=== PATIENT | male | born 1975 | race Caucasian/White ===

== ENCOUNTER 2021-01-01 05:40 | Outpatient (CLI) | payer MEDICAID ==
[~2021-01-01] VITALS: Ht 188 cm; Wt 114.5 kg
[2021-01-04] MEDS ORDERED: PRIM50TA33 PO (13:48)
[2021-01-04] MEDS ORDERED: TRAZ-227 PO (13:48)
[2021-01-04] MEDS ORDERED: PRAZ2CAP2 PO (13:48)
[2021-01-04] MEDS ORDERED: SNN187T PO (13:48)
[2021-01-04] MEDS ORDERED: PROP10TA8 PO (13:48)
[2021-01-04] MEDS ORDERED: METH-732 PO (13:48)
[2021-01-04] MEDS ORDERED: ZOLP10TA PO (13:48)
[2021-01-04] MEDS ORDERED: LAMO150T3 PO (13:48)
[2021-01-04] MEDS ORDERED: SUCR1TAB36 PO (13:48)
[2021-01-04] MEDS ORDERED: PANT40TA52 PO (13:48)
[2021-01-04] MEDS ORDERED: CELE200C PO (13:48)
[2021-01-04] MEDS ORDERED: HALO5AMP IJ (13:48)
[2021-01-04] MEDS ORDERED: ATOR40TA70 PO (13:48)
[2021-01-04] MEDS ORDERED: FENO145T26 PO (13:48)
== END 2021-01-04 13:59 | disposition home or self-care (01) ==
LOC: PREOP 05:40
PROVIDERS: ATTEND Otolaryngology Otolaryngology/Facial Plastic Surgery
DX: Z01.818 Encounter for other preprocedural examination (principal)

== ENCOUNTER 2021-01-08 06:26 | Day surgery (SDC) | payer MEDICAID ==
[~2021-01-08] VITALS: Ht 188 cm; Wt 114.5 kg
[2021-01-08] VITALS (9 sets, daily range): BP systolic 106–137; BP diastolic 63–84
[~2021-01-08 06:26] MED LIST: ATOR40TA70 PO; CELE200C PO; FENO145T26 PO; HALO5AMP IJ; LAMO150T3 PO; METH-732 PO; PANT40TA52 PO; PRAZ2CAP2 PO; PRIM50TA33 PO; PROP10TA8 PO; SNN187T PO; SUCR1TAB36 PO; TRAZ-227 PO; ZOLP10TA PO
--- OUTSIDE RECORDS SUMMARY | 2021-01-08 06:29 | XMS REPORT | Encounter Summary ---
Author Author [facility] Organization [facility] Address Unknown Phone Unavailable Care Team Providers Care Refinery Operator Assistant Name Role Phone Molly Barragan PA-C PCP Reason for Referral * Radiology Services (Routine) Referred By Contact Referred To Contact Status Reason Specialty Diagnoses / Procedures Benito Pruitt MD [address] [place] [address] New Request Radiology Diagnoses Lumbosacral radiculopathy P rocedures FLUORO GUIDANCE FOR INJ RAD Electronically signed by Benito Pruitt MD at Reason for Visit * Reason Onset Date Comments Pre-Visit Planning 12/29/2020 Encounter Details Care Team Description Date Type Department Benito Pruitt MD [address] [place] [address] Pre-Visit Planning 12/29/2020 Telephone [facility]: [facility] [place], [facility] [address], [address] [place] [address] Social History Date Tobacco Use Types Packs/Day Years Used Current Every Day Smoker Cigarettes 0.75 30 Smokeless Tobacco: Never Used Comments: 1.5 ppd average (39 py hx) Comments Alcohol Use Standard Drinks/Week 2-5 drinks on 2 occasions per year Yes 0 (1 standard drink = 0.6 o z pure alcohol) Alcohol Habits Answer Date Recorded How often do you have a drink containing alcohol? Monthly or less 06/04/2020 How many drinks containing alcohol do you have on 3 or 4 06/04/2020 a typical day when you are drinking? How often do you have six or more drinks on one Never 06/04/2020 occasion? 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 documented as of this encounter Functional Status Date of Assessment Functional Status Response 10/09/2020 Does the patient have a hearing impairment: No 10/09/2020 Does the patient have a visual impairment: Yes 10/09/2020 Does the patient have impaired ambulation: No 10/09/2020 Does the patient have an activity of daily living No (ADL) impairment: 10/09/2020 Does the patient have an instrumental activity of No daily living (IADL) impairment: Date of Assessment Cognitive Status Response 10/09/2020 Does the patient have a cognitive impairment: No documented as of this encounter Plan of Treatment Care Team Description Date Type Specialty Benito Pruitt MD [address] [place] [address] [phone] 01/14/2021 Hospital Anesthesia Pain Encounter documented as of this encounter Goals Goal Patient Associated Recent Progress Patient-Stat Aut hor Goal Type Problems ed? Improve quality of life Hospital Yes Rasheed Choi, RN Note: "Stop feeling the way I do and find the right medications" documented as of this encounter Results * FLUORO GUIDANCE FOR INJ RAD (12/30/2020 9:24 AM CDT) Specimen Narrative Performed At This order has been auto finalized and does not conta in a result. [facility] Performing Organization Address City/State/ZIP Code P ayaan Number [facility] documented in this encounter Visit Diagnoses Diagnosis Lumbosacral radiculopathy - Primary Thoracic or lumbosacral neuritis or rad iculitis, unspecified documented in this encounter Additional Health Concerns Assessment Noted Time A fall risk assessment has been completed for the pat ient 12/09/2020 9:25 AM CDT PHQ-2 Depression Total Score: 1 10/22/2020 10:11 AM CDT documented as of this encounter
--- OUTSIDE RECORDS SUMMARY | 2021-01-08 06:29 | XMS REPORT | Encounter Summary ---
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 Mario Alberto Nieto MD [facility] [place] [address] [facility] Pain Proc [address] [facility], [address] [place] [address] Authorized Anesthesia Pain Diagnoses Lumbosacral radiculopathy P rocedures [facility] SPINE INJECT INTERLAM LMBR/SAC Encounter Details Care Team Description Date Type Department Benito Pruitt MD [address] [facility] [place] [facility] [place] [address] Lumbosacral radiculopathy (Primary Dx) 12/30/2020 Procedure visit [facility] [place] [address] [facility], [address] [place] [address] Social History Date Tobacco Use [...] at Date Recorded Male 04/08/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 documented as of this encounter Last Filed Vital Signs Reading Time Taken Comments Vital Sign 110/75 12/30/2020 9:35 AM CDT Blood Pressure 77 12/30/2020 8:45 AM CDT Pulse 36.8 C (98.2 F) 12/30/2020 8:45 AM CDT Temperature 17 12/30/2020 8:45 AM CDT Respiratory Rate 95% 12/30/2020 9:35 AM CDT Oxygen Saturation - - Inhaled Oxygen Concentration 114.3 kg (252 lb) 12/30/2020 8:45 AM CDT Weight 188 cm (6' 2") 12/30/2020 8:45 AM CDT Height 32.35 12/30/2020 8:45 AM CDT Body Mass Index documented in this encounter Functional Status Date of Assessment [...] impairment: No documented as of this encounter Patient Instructions * Patient Instructions* Robi Robertson RN - 12/30/2020 8:30 AM CDT Procedure Completed Today: Lumbar Epidural Steroid Injection Important information following your procedure today: You may drive today 1. Pain relief may not be immediate. It is possible you may even experience an i ncrease in pain during the first 24-48 hours followed by a gradual decrease of y our pain. 2. Though the procedure is generally safe and complications are rare, we do ask that you be aware of any of the following: Any swelling, persistent redness, new bleeding, or drainage from the site of the injection. You should not experience a severe headache. You should not run a fever over 101 F. New onset of sharp, severe back & or neck pain. New onset of upper or lower extremity numbness or weakness. New difficulty controlling bowel or bladder function after the injection. New shortness of breath. If any of these occur, please call to report this occurrence to a nurse at [phone]. If you are calling after 4:00 p.m., on weekends or holidays please call [phone] and ask to have the resident physician air conditioning insulation installer for the physician p aged or go to your local emergency room. 3. You may experience soreness at the injection site. Ice can be applied at 20 m inute intervals. Avoid application of direct heat, hot showers or hot tubs today . 4. Avoid strenuous activity today. You may resume your regular activities and ex ercise tomorrow. 5. Patients with diabetes may see an elevation in blood sugars for 7-10 days aft er the injection. It is important to pay close attention to your diet, check you r blood sugars daily and report extreme elevations to the physician that treats your diabetes. 6. Patients taking a daily blood thinner can resume their regular dose this even ing. 7. It is important that you take all medications ordered by your pain physician. Taking medication as ordered is an important part of your pain care plan. If you cannot continue the medication plan, please notify the physician. Possible side effects to steroids that may occur: Flushing or redness of the face Irritability Fluid retention Change in womens menses The following medications were used: Triamcinolone and Contrast Dye documented in this encounter Progress Notes * Benito Pruitt MD - 12/30/2020 8:30 AM CDT I have examined the patient, and there are no significant changes in their condi tion, from the previous H&P performed on 12/09/20. L5-S1 ILESI [facility] - [facility] Subjective Chief Complaint: multifocal pain Interval HPI: Kelvin Dukes is a 45 y.o. male who has a past medical histor y of Acid reflux, Anxiety, Asthma, COPD (chronic obstructive pulmonary disease) (HCC), COVID-19 (07/2020), Degenerative cervical disc, Degenerative disc disease , cervical, Degenerative disc disease, lumbar, Degenerative disc disease, thorac ic, Depression (2018), Generalized headaches, High cholesterol, Hypertension, Ki dney stones, Nausea, and Thyroid disorder (2008). who now presents for evaluatio n. Patient presents to clinic for follow-up of low back and neck pain, accompanied by his spouse. NECK Patient reports 0% relief after ANANDA performed on 10/27/2020. Yet his pain has ch anged since last office visit, patient states he is no longer having the LUE sophia n like before the injection. The pain is in the mid-low neck region Denies BUE pain Pain is constant Numbness/tingling: yes - posterior upper LUE The pain ranges 6-9/10 The pain is described as stabbing, numbness, dull The pain is exacerbated by cervical ROM/rotation, lifting objects No clear alleviating factors +muscle stiffness/tightness Reports weakness in the LUE LBP Patient reports 0% relief after right L4-S1 TFESI performed on 11/11/2020. Denies even transient relief. The pain is in the middle of the low back, will radiate to the tailbone region t hen in will occasionally radiate in posterolateral distribution to the ankle in the RLE Denies LLE pain Pain is constant Numbness/tingling: yes - BLE, R>L The pain ranges 3-9/10 (avg 6/10) The pain is described as stabbing The pain is exacerbated by sitting > 1 hour, standing > 20-30 minutes The pain is partially alleviated by position changes/stretching, tailbone suppor t +muscle stiffness/tightness Reports weakness in the RLE Patient currently taking Lyrica 150mg QID, Celebrex, Robaxin as prescribed by PC P. Patient reports previous PT sessions with minimal relief and actually feels exer cise exacerbates level of pain. Hx of spine surgery: yes - ACDF C6-C7 Patient denies fevers, chills, infection, bleeding issues, anticoagulants, new m uscle weakness, numbness, tingling, bowel/bladder incontinence, or saddle anesth esia. ROS: Review of Systems Musculoskeletal: Positive for back pain, myalgias and neck pain. Neurological: Positive for weakness. PRIOR MEDICATIONS: Effective Lyrica Robaxin Ineffective Gabapentin Cymbalta Flexeril Tizanidine Unable to tolerate NSAID Never Ami/Nortriptyline Tizanidine PRIOR INTERVENTIONS: C6-7 ACDF Effective ?costochondral injections TESI (2 weeks relief x2) Ineffective Physician-ordered PT Kelvin Dukes denies any recent fevers, chills, infection, antibiotics, dat l or bladder incontinence, saddle anesthesia, bleeding issues, or recent anticoa gulant. Past Medical History: Medical History: Diagnosis Date Acid reflux Anxiety Asthma COPD (chronic obstructive pulmonary disease) ([facility]) COVID-19 07/2020 Degenerative cervical disc C5-C6 Degenerative disc disease, cervical Degenerative disc disease, lumbar Degenerative disc disease, thoracic Depression 2018 Generalized headaches High cholesterol Hypertension Kidney stones Nausea Thyroid disorder 2009 Family History: Family History Problem Relation Age of Onset Diabetes Mother Heart Attack Father at 47 Tremor Paternal Grandmother mild Tremor Maternal Aunt Mental Retardation Brother Dementia Paternal Grandfather Social History: [place] [facility] [phone] (2 hours away) Applying for disability. Social History Socioeconomic History Marital status: Spouse name: Not on file Number of children: Not on file Years of education: Not on file Highest education level: Not on file Occupational History Not on file Tobacco Use Smoking status: Current Every Day Smoker Packs/day: 0.75 Years: 30.00 Pack years: 22.50 Types: Cigarettes Smokeless tobacco: Never Used Tobacco comment: 1.5 ppd average (39 py hx) Vaping Use Vaping Use: Former Substances: Nicotine Substance and Sexual Activity Alcohol use: Yes Alcohol/week: 0.0 standard drinks Comment: 2-5 drinks on 2 occasions per year Drug use: Not Currently Types: Marijuana, Methamphetamines, Cocaine Comment: Last use ~1999 Sexual activity: Not Currently Partners: Female Other Topics Concern Not on file Social History Narrative Not on file Allergies: Allergies Allergen Reactions Morphine HIVES Medications: Current Outpatient Medications: albuterol sulfate (PROAIR HFA) 90 mcg/actuation HFA aerosol inhaler, Inhale 2 puffs by mouth into the lungs every 6 hours as needed for Wheezing or Shortne ss of Breath. Shake well before use., Disp: , Rfl: atorvastatin (LIPITOR) 40 mg tablet, Take 40 mg by mouth daily., Disp: , Rf l: benztropine (COGENTIN) 1 mg tablet, Take 1 mg by mouth at bedtime daily., D isp: , Rfl: budesonide-formoterol (SYMBICORT HFA) 160-4.5 mcg/actuation inhalation, Inh tova two puffs by mouth into the lungs twice daily., Disp: 10.2 g, Rfl: 0 celecoxib (CELEBREX) 200 mg capsule, Take 200 mg by mouth daily., Disp: , R fl: fenofibrate nanocrystallized (TRICOR) 145 mg tablet, , Disp: , Rfl: hydrOXYzine (ATARAX) 50 mg tablet, Take 50 mg by mouth every 6 hours as nee ded., Disp: , Rfl: ipratropium/albuterol (COMBIVENT RESPIMAT) 20-100 mcg/actuation inhaler, In de luna one puff by mouth into the lungs every 6 hours., Disp: 4 g, Rfl: 0 levothyroxine (SYNTHROID) 200 mcg tablet, Take 200 mcg by mouth daily. Take with 25 mcg tablet, Disp: , Rfl: levothyroxine (SYNTHROID) 25 mcg tablet, Take 25 mcg by mouth daily 30 shiloh nickolas before breakfast. Take with 200 mcg tablet, Disp: , Rfl: methocarbamoL (ROBAXIN) 750 mg tablet, Take one tablet by mouth twice daily ., Disp: 60 tablet, Rfl: 0 nortriptyline (PAMELOR) 25 mg capsule, Take one capsule by mouth at bedtime daily for 30 days., Disp: 30 capsule, Rfl: 3 oxyCODONE (ROXICODONE) 10 mg tablet, Take 10 mg by mouth every 8 hours as n eeded for Pain, Disp: , Rfl: pantoprazole DR (PROTONIX) 40 mg tablet, Take 40 mg by mouth daily., Disp: , Rfl: prazosin (MINIPRESS) 1 mg capsule, Take one capsule by mouth at bedtime edwardo ly. Indications: posttraumatic stress syndrome, Disp: 30 capsule, Rfl: 0 pregabalin (LYRICA) 300 mg capsule, Take 300 mg by mouth twice daily., Disp : , Rfl: primidone (MYSOLINE) 50 mg tablet, Take two tablets by mouth three times da clara., Disp: 90 tablet, Rfl: 5 propranoloL (INDERAL) 10 mg tablet, Take one tablet by mouth twice daily. I ndications: essential tremor, Disp: 60 tablet, Rfl: 0 SENNA LAX 8.6 mg tablet, , Disp: , Rfl: sucralfate (CARAFATE) 1 gram tablet, Take 1 tablet by mouth three times edwardo ly., Disp: , Rfl: traZODone (DESYREL) 100 mg tablet, Take one tablet by mouth at bedtime as n eeded for sleep, Disp: 30 tablet, Rfl: 0 Current Facility-Administered Medications: iopamidol IT 200 (ISOVUE-M 200) injection 2.5 mL, 2.5 mL, Epidural, ONCE, L Benito sanches MD triamcinolone acetonide (KENALOG-40) injection 80 mg, 80 mg, Epidural, ONCE , Benito Pruitt MD Physical examination: BP 112/84 | Pulse 77 | Temp 36.8 C (98.2 F) | Resp 17 | Ht 188 cm (74") | Wt 114.3 kg (252 lb) | SpO2 99% | BMI 32.35 kg/m Pain Score: Eight Male Opioid Risk Score: 5 (10/09/2020 1:40 PM) Opioid Risk Category: Moderate Risk (10/09/2020 1:40 PM) General: The patient is a well-developed, well nourished 45 y.o. male in no acut e distress. HEENT: Head is normocephalic and atraumatic. Pupils are equal and reactive to li ght bilaterally. Cardiac: Based on palpation, pulse appears to be regular rate and rhythm. Pulmonary: The patient has unlabored respirations and bilateral symmetric chest excursion. Abdomen: Soft, nontender, and nondistended. There is no rebound or guarding. Extremities: No clubbing, cyanosis, or edema. Neurologic: The patient is alert and oriented times 3. Cranial nerves II through XII are intact without any focal deficits. Musculoskeletal: Gait is antalgic. C-Spine There is moderate low cervical paraspinal tenderness. Paraspinal muscle tone is increased. ROM with flexion, extension, rotation, and lateral bending is intact but stiff. Strength is equal and adequate bilaterally in the flexors and extensors of the b ilateral upper extremities. Ramirez's is negative bilaterally. L-Spine There is moderate low lumbar paraspinal tenderness. Paraspinal muscle tone is in creased. Facet loading is positive. There is no tenderness or radiating pain with palpation over the SI joints, piri formis, or greater trochanteric bursae bilaterally. ROM with flexion, extension, rotation, and lateral bending is intact. Strength is equal and adequate bilaterally in the flexors and extensors of the b ilateral lower extremities. SLR is positive in the RLE. CT C-spine Myelogram: 2020 1. No high-grade central spinal stenosis or foraminal narrowing. C6-7 prosthetic disc. 2. C5-6 degenerative disc disease resulting in mild to moderate central spinal stenosis. MRI C/T/L-Spine Results: Results for orders placed during the hospital encounter of 08/29/20 MRI C-SPINE WO/W CONTRAST Narrative EXAM: MRI C-SPINE, T-SPINE, AND L-SPINE HISTORY: 45-year-old male, right lower extremity numbness/urinary incontinence, evaluate for epidural abscess or compressive syndrome. Technique: Multiple sagittal and axial MR sequences were obtained of the cervica l, thoracic, and lumbar spine with and without MultiHance contrast. Comparison: CT C-spine January 11, 2020 and MRI T and L-spine January 12, 2020. FINDINGS: Motion degrades multiple sequences. C-spine: Susceptibility artifact at C6-C7 from interbody spacer limits evaluation at this level. There is slight reversal of the normal cervical lordosis. The vertebral body heights are maintained. There is normal marrow signal. The cervical cord i s normal in size and signal. There is multilevel cervical disc degeneration, gre atest of moderate degree at C5-C6. At C2-C3, no significant central canal or foraminal narrowing. At C3-C4, small posterior disc osteophyte complex with minimal central disc prot rusion results in mild effacement of the anterior thecal sac/mild central canal stenosis. Uncovertebral joint and facet joint hypertrophy result in mild bilater al neural foraminal stenosis. At C4-C5, a mild posterior disc bulge results in mild central spinal stenosis. N o significant neural foraminal stenosis. At C5-C6, posterior disc osteophyte complex result in [id number] central s joseline stenosis. Susceptibility artifact limits evaluation for neural foraminal n arrowing, though no moderate or high-grade foraminal stenosis is seen. Evaluation at C6-C7 is limited due to susceptibility artifact. At C7-T1, no significant central spinal or neural foraminal stenosis. No abnormal enhancing lesion is identified. There is some mild epidural enhancem ent at the lower cervical spine which may represent some mild postoperative fibr osis, though no epidural hematoma or epidural abscess is seen. The paraspinous s oft tissues are unremarkable. T-spine: There is normal thoracic alignment. The vertebral body heights are maintained. T here is normal marrow signal. The thoracic cord is normal in size and signal. T here is moderate multilevel thoracic disc degeneration, greatest within the midt horacic spine. Small right paracentral disc protrusion at T11-T12 is redemonstra chandu along with a few minimal posterior disc bulges, without significant central spinal stenosis. There is no significant neural foraminal stenosis. No abnormal enhancing lesion is identified. No epidural hematoma or abscess. The paraspinous soft tissues are unremarkable. L-spine: There is normal lumbar alignment. The vertebral body heights are maintained. The re is normal marrow signal. The conus is normal in appearance and position at t he L1 level. There is multilevel lumbar disc degeneration, greatest of moderate degree at L1-L2, similar prior. Mild multilevel facet joint fluid. At T12-L1, no significant central spinal or neural foraminal stenosis. At L1-L2, mild symmetric disc bulge as well as moderate anterior and small poste rior osteophytes, without significant central spinal or neural foraminal stenosi s. At L2-L3, mild symmetric disc bulge and facet arthrosis without significant cent ral spinal or neural foraminal stenosis. At L3-L4, symmetric disc bulge, ligamentum flavum thickening, and facet arthrosi s result in very mild left neural foraminal stenosis. At L4-L5, symmetric disc bulge, ligamentum flavum thickening, small posterior ri ght scalp, and facet arthrosis result in mild left neural foraminal narrowing. N o significant central canal stenosis. At L5-S1, symmetric disc bulge and facet arthrosis present without significant c entral canal or foraminal stenosis. No abnormal enhancing lesion is identified. The paraspinous soft tissues are unr emarkable. No epidural abscess or hematoma. Impression C-spine: 1. Motion limited examination. Prior C6-C7 interbody spacer with some mild lower cervical epidural enhancement present anteriorly and posteriorly and favored for mild postoperative fibrosis, with no epidural hematoma or abscess seen. 2. Multilevel degenerative central spinal stenosis, greatest of mild to moderate degree at C5-C6. There are also a few sites of mild neural foraminal narrowing. T-spine: 1. Thoracic spondylosis without significant central spinal or neural foraminal s tenosis. 2. No epidural hematoma or abscess. L-spine: 1. Lumbar spondylosis with mild multilevel degenerative neural foraminal stenosi s as above. No significant central canal narrowing. 2. No epidural abscess or hematoma. By my electronic signature, I attest that I have personally reviewed the images for this examination and formulated the interpretations and opinions expressed i n this report Finalized by Rasheed De La Cruz M.D. on 08/29/2020 7:27 AM. Dictated by Shaq santana M.D. on 08/29/2020 6:37 AM. Last Cr and LFT's: Creatinine Date Value Ref Range Status 09/28/2020 1.08 0.4 - 1.24 MG/DL Final AST (SGOT) Date Value Ref Range Status 09/28/2020 20 7 - 40 U/L Final ALT (SGPT) Date Value Ref Range Status 09/28/2020 50 7 - 56 U/L Final Alk Phosphatase Date Value Ref Range Status 09/28/2020 81 25 - 110 U/L Final Total Bilirubin Date Value Ref Range Status 09/28/2020 0.4 0.3 - 1.2 MG/DL Final Assessment: Kelvin Dukes is a 45 y.o. male who has a past medical history of Acid refl ux, Anxiety, Asthma, COPD (chronic obstructive pulmonary disease) (HCC), COVID-1 9 (07/2020), Degenerative cervical disc, Degenerative disc disease, cervical, De generative disc disease, lumbar, Degenerative disc disease, thoracic, Depression (2019), Generalized headaches, High cholesterol, Hypertension, Kidney stones, N ausea, and Thyroid disorder (2009). who presents for evaluation of pain. The pain complaints are most likely due to: 1. Lumbosacral radiculopathy K[facility] AMB SPINE INJECT INTERLAM LMBR/SAC [facility] AMB SPINE INJECT SNRB/TFESI LUMBAR/SACRAL triamcinolone acetonide (KENALOG-40) injection 80 mg Patient has had an adequate trial of > 3 months of rest, exercise, multimodal treatment, and the passage of time without improvement of symptoms. The pain has significant impact on the daily quality of life. Plan: 1. Discussed plan of care options with patient. Will schedule for L5-S1 ILESI at next available appointment. 2. Will then schedule for bilateral C6-T1 MBBs with subsequent goal of RFA after the low back procedure. 3. Will trial Nortriptyline 25mg qHS for neuropathic pain. Discussed risks and b enefits of medication therapy and possible SEs, patient verbalized understanding and all questions answered. 4. Encouraged daily in-home PT regimen as tolerated. 5. Continue medications as prescribed by PCP. 6. If he fails to improve, can consider other options. We did discuss that SCS m ay not be a possibility on Medicaid, but would be viable with Medicare based on his symptoms. 7. Follow up as needed. Risks/benefits of all pharmacologic and interventional treatments discussed and questions answered. * Barbara Licona RN - 12/30/2020 8:30 AM CDT Pain Procedure Plan Of Care Risk of injury related to procedure Patient identification, allergies verified, fall precautions implemented Risk of injury and impaired skin integrity Positioning devices applied as appropriate for procedure, patient transported [facility] staff assistance Management of Pain Pain assessment completed on arrival, PAR scoring following procedure and at dis charge, sedation administered as ordered, patient positioned for comfort Risk of anxiety related to procedure and disease process Patient education on procedure and expectations, provide coping support to patie nt, provide relaxation techniques Outcomes: The patient is free of injury during and following their procedure. Skin is intact and free of bruising. The patients pain is managed during their stay. Alleviation of patient anxiety exhibited. documented in this encounter Procedure Notes * Benito Pruitt MD - 12/30/2020 8:30 AM CDT Associated Order(s): KALA LMBR/SAC Attending Surgeon: Benito Pruitt MD Anesthesia: Local Pre-Procedure Diagnosis: 1. Lumbosacral radiculopathy Post-Procedure Diagnosis: 1. Lumbosacral radiculopathy KALA LMBR/SAC Procedure: epidural - interlaminar Laterality: n/a on 12/30/2020 8:30 AM Location: lumbar KALA with imaging - L5-S1 Consent: Consent obtained: written Consent given by: patient Risks discussed: allergic reaction, bleeding, bruising, infection, nerve damage, no change or worsening in pain, reaction to medication, seizure, swelling and w eakness Alternatives discussed: alternative treatment, delayed treatment and no treatmen t Discussed with patient the purpose of the treatment/procedure, other ways of susan ating my condition, including no treatment/ procedure and the risks and benefits of the alternatives. Patient has decided to proceed with treatment/procedure. [place] Protocol: Relevant documents: relevant documents present and verified Site marked: the operative site was marked Patient identity confirmed: Patient identify confirmed verbally with patient. Time out: Immediately prior to procedure a "time out" was called to verify the c orrect patient, procedure, equipment, learning support assistant and site/side marked as requ ired Procedures Details: Indications: pain Prep: chlorhexidine Patient position: prone Estimated Blood Loss: minimal Specimens: none Amount Injected: L5-S1: 4mL Number of Joints: 1 Guidance: fluoroscopy Needle and Epidural Catheter: tuohy Needle size: 18 G Injection procedure: Incremental injection and Negative aspiration for blood Patient tolerance: Patient tolerated the procedure well with no immediate compli cations. Pressure was applied, and hemostasis was accomplished. Outcome: Pain relieved Comments: LUMBAR INTERLAMINAR EPIDURAL STEROID INJECTION PROCEDURE: 1) L5-S1 interlaminar epidural steroid injection 2) Fluoroscopic needle guidance REASON FOR PROCEDURE: Lumbar radiculopathy, DDD (lumbar) PHYSICIAN: Benito Pruitt MD MEDICATIONS INJECTED: 2 mL of triamciniolone (80 mg) and 2 mL of sterile, preser vative-free saline LOCAL ANESTHETIC INJECTED: 1 mL of 1% lidocaine SEDATION MEDICATIONS: None SPECIMENS REMOVED: None ESTIMATED BLOOD LOSS: None COMPLICATIONS: None TECHNIQUE: Time-out was taken to identify the correct patient, procedure and robbie e prior to starting the procedure. With the patient lying in the prone position, the area was prepped and draped in the usual sterile fashion using DuraPrep and a fenestrated drape. The level above was determined using fluoroscopy. A local anesthetic was given using a 27-gauge 1.25-inch needle by raising a skin wheal a nd going down to the hub. A 3.5-inch 18-gauge Tuohy needle was introduced under intermittent fluoroscopic guidance. The needle was advanced through the ligament um flavum using the loss of resistance technique. Once the tip of the needle was thought to be in the desired position, the contrast was injected to confirm only epidural spread, and no vascular runoff. The injectate was then injected slowly with intermittent negative aspiration. The procedure was completed without com plications and was tolerated well. The patient was monitored after the procedure . The patient (or responsible constitution party) was given post-procedure and discharge inst ructions to follow at home. The patient was discharged in stable condition. Benito Pruitt MD, VIVIAN Estimated blood loss: none or minimal Specimens: none Patient tolerated the procedure well with no immediate complications. Pressure w as applied, and hemostasis was accomplished. documented in this encounter Plan of Treatment Care Team Description Date Type Specialty Benito Pruitt MD [address] [place] [address] [phone] 01/14/2021 Hospital Anesthesia Pain Encounter documented as of this encounter Goals Goal Patient Associated Recent Progress Patient-Stat Aut hor Goal Type Problems ed? Improve quality of life Hospital Yes Rasheed Choi, RN Note: "Stop feeling the way I do and find the right medications" documented as of this encounter Procedures Comments Procedure Name Priority Date/Time Associated Diag nosis LA NJX DX/THER SBST Routine 12/30/2020 Lumbosacra l radiculopathy INTRLMNR LMBR/SAC W/IMG 8:30 AM CDT GDN documented in this encounter Results * [facility] LMBR/SAC (12/30/2020 8:30 AM CDT) Narrative Performed At Benito Pruitt MD 12/30/2020 10:06 AM OTHER OUTS HECTOR LAB [facility] LMBR/SAC Procedure: epidural - interlaminar Laterality: n/a on 12/30/2020 8:30 AM Location: lumbar [facility] with imaging - L5- S1 Consent: Consent obtained: written Consent given by: patient Risks discussed: allergic reaction, ble eding, bruising, infection, nerve damage, no change or worsening in pain, reaction to medication, seizure, swelling and weakness Alternatives discussed: alternative susan atment, delayed treatment and no treatment Discussed with patient the purpose of t he treatment/procedure, other ways of treating my condition, including no treatment/ procedure and the risks and benefits of the alternatives. Patie nt has decided to proceed with treatment/procedure. [place] Protocol: Relevant documents: relevant documents present and verified Site marked: the operative site was [place] cab[place] Patient identity confirmed: Patient hector ntify confirmed verbally with patient. Time out: Immediately prior to procedur e a "time out" was called to verify the correct patient, procedure, equipme nt, learning support assistant and site/side marked as required Procedures Details: Indications: pain Prep: chlorhexidine Patient position: prone Estimated Blood Loss: minimal Specimens: none Amount Injected: L5-S1: 4mL Number of Joints: 1 Guidance: fluoroscopy Needle and Epidural Catheter: tuohy Needle size: 18 G Injection procedure: Incremental inject ion and Negative aspiration for blood Patient tolerance: Patient tolerated th e procedure well with no immediate complications. Pressure was applied, an d hemostasis was accomplished. Outcome: Pain relieved Comments: LUMBAR INTERLAMINAR EPIDURAL STEROID IN JECTION PROCEDURE: 1) L5-S1 interlaminar epidural steroid injection 2) Fluoroscopic needle guidance REASON FOR PROCEDURE: Lumbar radiculopa thy, DDD (lumbar) PHYSICIAN: Benito Pruitt MD MEDICATIONS INJECTED: 2 mL of triamcini olone (80 mg) and 2 mL of sterile, preservative-free saline LOCAL ANESTHETIC INJECTED: 1 mL of 1% l idocaine SEDATION MEDICATIONS: None SPECIMENS REMOVED: None ESTIMATED BLOOD LOSS: None COMPLICATIONS: None TECHNIQUE: Time-out was taken to identi fy the correct patient, procedure and side prior to starting the procedur e. With the patient lying in the prone position, the area was prepped an d draped in the usual sterile fashion using DuraPrep and a fenestrate d drape. The level above was determined using fluoroscopy. A local a nesthetic was given using a 27-gauge 1.25-inch needle by raising a skin wheal and going down to the hub. A 3.5-inch 18-gauge Tuohy needle w as introduced under intermittent fluoroscopic guidance. The needle was a dvanced through the ligamentum flavum using the loss of resistance gilberto hnique. Once the tip of the needle was thought to be in the desired positi on, the contrast was injected to confirm only epidural spread, and no va scular runoff. The injectate was then injected slowly with intermittent negative aspiration. The procedure was completed without complications and was tolerated well. The patient was monitored after the procedure. The patient (or responsible constitution party) was given post-procedure and discharge inst ructions to follow at home. The patient was discharged in stable condit ion. Benito Pruitt MD, VIVIAN Performing Organization Address City/State/ZIP Code P ayaan Number OTHER OUTSIDE LAB documented in this encounter Visit Diagnoses Diagnosis Lumbosacral radiculopathy - Primary Thoracic or lumbosacral neuritis or rad iculitis, unspecified documented in this encounter Administered Medications Action Date Dose Rate Site Medication Order MAR Action 12/30/2020 9:17 AM CDT 2.5 mL iopamidol IT 200 (ISOVUE-M 200) Given injection 2.5 mL 2.5 mL, Epidural, ONCE, 1 dose, On Mon12/30/20 at 0915, NOTE: This is a HIGH ALERT Medication. 12/30/2020 9:17 AM CDT 80 mg triamcinolone acetonide (KENALOG-40) Given injection 80 mg 80 mg, Epidural, ONCE, 1 dose, On Mon12/30/20 at 1000 documented in this encounter Discontinued Medications Start Date End Date Medication Sig Discontinue Reason 10/16/2020 12/30/2020 methylPREDNIsolone Patient's (MEDROL DOSEPAK) 4 mg Choice tablet documented as of this encounter Orders First Ordered Date Procedures Count Last Ordered Date [facility] SPINE INJECT INTERLAM LMBR/SAC 1 12/30/2020 KU AMB SPINE INJECT SNRB/TFESI 1 021 LUMBAR/SACRAL documented in this encounter Additional Health Concerns Assessment Noted Time A fall risk assessment has been completed for the pat ient 12/09/2020 9:25 AM CDT PHQ-2 Depression Total Score: 1 10/22/2020 10:11 AM CDT documented as of this encounter
--- OUTSIDE RECORDS SUMMARY | 2021-01-08 06:29 | XMS REPORT | Clinical Summary ---
Author Author [facility] Organization [facility] Address Unknown Phone Unavailable Care Team Providers Care Electrical Project Engineer Name Role Phone Molly Barragan PA-C PCP Allergies Comments Active Allergy Reactions Severity Noted Date Pt has taken oxycodone and norco without problemshives Morphine 12/06/2019 Medications End Date Status Medication Sig Dispensed Refills Start Date Active hyoscyamine Take 1 tablet 20 tablet 1 (ANASPAZ,LEVSIN) 0.125 mg (0.125 mg 9 tablet total) by mouth every 4 (four) hours as needed for cramping (bladder spasms or frequency). Active atorvastatin (LIPITOR) 40 Take 40 mg by 0 11/13 MG tablet mouth daily. 0 Active levothyroxine (SYNTHROID, Take 200 mcg 0 11/13 LEVOTHROID) 200 MCG by mouth 0 tablet daily. Pt is taking 225mcg Active levothyroxine (SYNTHROID, Take 25 mcg 0 11/13 LEVOTHROID) 75 MCG tablet by mouth 0 daily. Active sennosides/docusate 1 tab, PO, 0 sodium (SENOKOT-S ORAL) BID, 234.79 0 Active QUEtiapine (SEROQUEL XR) Take 100 mg 0 12/02 50 mg ER 24 hr tablet by mouth 0 daily. Active polyethylene glycol 3350 Take 17 g by 0 11/22 (MIRALAX ORAL) mouth as 0 needed. Active pantoprazole (PROTONIX) Take 40 mg by 0 40 MG tablet mouth daily. 0 Active oxyCODONE (ROXICODONE) 5 Take 5 mg by 0 12/01 MG immediate release mouth every 8 0 tablet (eight) hours as needed. Active hydrOXYzine (ATARAX) 50 Take 50 mg by 0 MG tablet mouth every 6 0 (six) hours as needed. Active DULoxetine (CYMBALTA) 60 Take 60 mg by 0 12/02 mg capsule mouth daily. 0 Active SYMBICORT 160-4.5 Inhale 2 0 mcg/actuation inhaler puffs 2 (two) 0 times a day. Active albuterol (VENTOLIN HFA) 1 puff as 0 90 mcg/actuation HFA needed inhaler Active melatonin 3 mg cap Take 40 mg by 0 mouth 0 nightly. Active pregabalin (LYRICA) 150 Take 150 mg 0 MG capsule by mouth 2 (two) times a day. Active tiZANidine (ZANAFLEX) 2 Take 2 mg by 0 MG tablet mouth every 6 (six) hours as needed. Active FLUoxetine (PROZAC) 40 mg Take 60 mg by 0 02/14 capsule mouth daily. 0 Active propranoloL (INDERAL) 40 0 MG tablet 0 Active PRIMIDONE ORAL Take 100 mg 0 by mouth nightly. Active sucralfate (CARAFATE) 1 Take 1 tablet 0 gram tablet (1 g total) 1 by mouth 2 (two) times a day. Active senna (SENOKOT) 8.6 mg Take 1 tablet 7 tablet 0 0 tablet by mouth 1 daily. Active aspirin (ADULT LOW DOSE Take 1 tablet 0 ASPIRIN) 81 MG EC tablet (81 mg total) 1 by mouth daily. Active Problems Problem Noted Date Drug-induced constipation 08/12/2020 Last Assessment & Plan: Formatting of this note might be differ ent from the original. On multiple medications at home with co nstipation side effect (e.g., opioid, anticholinergics, etc.). -Add MiraLAX, senna, and bisacodyl supp ository. Pneumonia due to COVID-19 virus 08/11/2020 Last Assessment & Plan: Formatting of this note might be differ ent from the original. Initial diagnosis 07/31/2020 with sympto ms starting 07/29/2020. Initially, patient endorsed symptoms of head cold, chest cold, migraine. He then had progression to loss of tast e and myalgias. He then developed cough and chest pain around 07/31/2020. Complicated by COPD, asthma, continued tobacco use. Patient presented to [facility] 2020 and was found to have a positive D-dimer, so he was transferred to [facility]. Follow-up CTA of the chest was negative for PE / pneumothorax / pleural effusion; positive for COVID-19 pneumonia; also p ositive for small subpleural blebs in bilateral lung apices. Follow-up bi lateral extremity venous duplex negative for DVT. Per pulmonology consult, wean off subme ntal oxygen; 10-day course of Decadron; anticipate symptoms to persis t for some weeks, and re-evaluate in ER if worsening symptoms; recommend smo luis cessation; repeat chest CT in 2 months with pulmonology clinic follow-u p in 2 months; further evaluate obstructive sleep apnea. -Continue Decadron 6 mg daily. -Continue bronchodilators. -Continue ICS/LABA. -Continue Lovenox 0.5 mg/kg (60 mg) twi ce daily while monitoring for acute bleeding. -Wean off supplemental oxygen. -Today's liver enzyme levels have retur saurav to normal range, resume home atorvastatin. -Pending outpatient pulmonology follow- up. Other headache syndrome 08/11/2020 Overview: Formatting of this note might be differ ent from the original. L ast Assessment & Plan: Formatting of this note might be differ ent from the original. Subacute. Patient reports headache symptoms since diagnosis with COVID-19. He describes the headache as migrating and intermittent. While on Lovenox for COVID-19 VTE proph ylaxis, follow-up head CT negative for acute intracranial findings. -Continue home analgesics. -Continue the added Decadron. -Continue warm compress as needed. Mood disorder 08/11/2020 Last Assessment & Plan: Formatting of this note might be differ ent from the original. Chronic. Currently, patient states that "his moo d is better than it has been in a while". He denies suicidal ideation. Patient is followed by [facility] in [place]. Patient reports recent medication bowser es including discontinuation of Depakote and Lamictal. He is currently controlled on a regimen of Seroquel XR 100 mg nightly, Cymbalta 60 mg daily , Prozac 40 mg daily. He also takes hydroxyzine twice daily. -Continue home mood medications. -Due to his mood medications' QT-prolon gation risk, will avoid/minimize adding more medications with QT-prolong ation risk. Tremor 08/11/2020 Last Assessment & Plan: Formatting of this note might be differ ent from the original. Chronic. Managed by [facility] neurology. Patient managed on primidone 100 mg edwardo ly and propranolol 40 mg twice daily. -Continue home primidone and propranolo l with BP/HR hold parameters. Chronic low back pain 08/11/2020 Last Assessment & Plan: Formatting of this note might be differ ent from the original. Chronic, currently worsened with recent illness and coughing. Patient has recently been discontinued from gabapentin and started on Lyrica 150 mg twice daily. In addition , he does take oxycodone 5 mg as needed (usually only a few doses weekly ), and tizanidine 8 mg as needed. -Continue home Lyrica, oxycodone, and t izanidine. -Add lidocaine patch. COPD (chronic obstructive pulmonary disease) 021 Last Assessment & Plan: Formatting of this note might be differ ent from the original. With concurrent history of asthma and c ontinued tobacco use. Patient adherent to Symbicort and as ne eded albuterol at home. -Substitute inpatient Breo Ellipta for home Symbicort. -Add albuterol 4 times daily and ipratr opium 4 times daily. -Dexamethasone 6 mg daily. -Tobacco cessation encouraged. History of benign bladder tumor 08/11/2020 Last Assessment & Plan: Formatting of this note might be differ ent from the original. S/p resection several years ago. Patient does continue to complain of dy suria, but has had work-up by his urologist and has a follow-up appointme nt coming up. -Continue home hyoscyamine as needed fo r bladder spasms. Hypothyroidism 10/21/2015 Overview: Formatting of this note might be differ ent from the original. Dx 2008. Last Assessment & Plan: Formatting of this note might be differ ent from the original. Chronic. Per patient report, has been stable on levothyroxine 225 mcg daily. -Admission TSH 13 elevated, but free T4 1.0 WNL. -Continue home levothyroxine 225 mcg da clara. Dyslipidemia Irritability and anger Depression GERD (gastroesophageal reflux disease) Last Assessment & Plan: Formatting of this note might be differ ent from the original. Chronic. Per patient report, has been stable on sucralfate 1 g twice daily and pantoprazole 40 mg daily. -Continue home sucralfate and pantopraz ole and monitor closely in the setting of steroid/NSAID use. Family History Medical History Relation Name Comments Heart attack Father Diabetes Mother Heart attack Mother Thyroid disease Paternal Aunt Thyroid disease Paternal Grandmother Relation Name Status Comments Father Mother Alive Paternal Aunt Paternal Grandmother Social History Date Tobacco Use Types Packs/Day Years Used Current Every Day Smoker Cigarettes 1 22 Smokeless Tobacco: Never Used Tobacco Cessation: Ready to Quit: Yes; C ounseling Given: Yes Comments Alcohol Use Standard Drinks/Week 3-4 per month Yes 0 (1 standard drink = 0.6 o z pure alcohol) Sex Assigned at Date Recorded Not on file Last Filed Vital Signs Reading Time Taken Comments Vital Sign 115/87 08/13/2020 1:07 PM CDT Blood Pressure 78 08/13/2020 1:07 PM CDT Pulse 36.7 C (98 F) 08/13/2020 1:07 PM CDT Temperature 18 08/13/2020 1:07 PM CDT Respiratory Rate 92% 08/13/2020 1:07 PM CDT Oxygen Saturation - - Inhaled Oxygen Concentration 112.5 kg (248 lb) 08/13/2020 6:13 AM CDT Weight 188 cm (6' 2") 08/11/2020 1:13 PM CDT Height 31.84 08/11/2020 1:13 PM CDT Body Mass Index Plan of Treatment Health Maintenance Due Date Last Done Comments Spirometry # 1977 Td/Tdap# 1977 Tobacco Cessation 1977 Counseling # COVID-19 Vaccine (1) 1989 Influenza Vaccine (#1) 2021 Pneumococcal Vaccine: 2042 12/16/2019 Pediatrics (0 to 5 Years) and At-Risk Patients (6 to 64 Years) (2 of 2 - PPSV23) Results Not on filefrom Last 3 Months Insurance Type Payer Benefit Subscriber ID Effective Phone Address Plan / Dates Group MEDICAID MANAGED CARE [place] [id number] 0- ([place] STATE Present HEALTH Advance Directives For more information, please contact: [phone] Patient Sticker Operator Explanation Type Date Recorded Advance Directives and Living Will Power of Cable Driller Health Care Directive Date Inactivated Comments Code Status Date Activated 08/13/2020 3:52 PM Full Code 08/11/2020 4:40 AM
--- OUTSIDE RECORDS SUMMARY | 2021-01-08 06:29 | XMS REPORT | Encounter Summary ---
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 Improve quality of life Hospital Yes Rasheed Choi, RACHEAL Note: "Stop feeling the way I do and find the right medications" documented as of this encounter Visit Diagnoses Not on filedocumented in this encounter Additional Health Concerns Assessment Noted Time A fall risk assessment has been completed for the pat ient 12/09/2020 9:25 AM CDT PHQ-2 Depression Total Score: 1 10/22/2020 10:11 AM CDT documented as of this encounter
--- OUTSIDE RECORDS SUMMARY | 2021-01-08 06:29 | XMS REPORT | Clinical Summary ---
Author Author [facility] Organization [facility] Address Unknown Phone Unavailable Care Team Providers Care Wood Block Artist Name Role Phone Molly Barragan PA-C PCP Source Comments Some departments are not documenting in the electronic medical record. If you d o not see the information that you expected, contact Release of Information in [facility] Management department at [phone] for further assistan ce in locating additional records.[facility] Allergies Comments Active Allergy Reactions Severity Noted Date Morphine HIVES Medium 01/11/2020 Medications End Date Status Medication Sig Dispensed Refills Start Date Active hydrOXYzine (ATARAX) 50 Take 50 mg by 0 mg tablet mouth every 6 0 hours as needed. Active levothyroxine (SYNTHROID) Take 200 mcg 0 11/12 200 mcg tablet by mouth 0 daily. Take with 25 mcg tablet Active levothyroxine (SYNTHROID) Take 25 mcg 0 25 mcg tablet by mouth daily 30 minutes before breakfast. Take with 200 mcg tablet Active sucralfate (CARAFATE) 1 Take 1 tablet 0 gram tablet by mouth 0 three times daily. Active oxyCODONE (ROXICODONE) 10 Take 10 mg by 0 mg tablet mouth every 8 hours as needed for Pain Active celecoxib (CELEBREX) 200 Take 200 mg 0 mg capsule by mouth daily. Active budesonide-formoterol Inhale two 10.2 g 0 /0 (SYMBICORT HFA) 160-4.5 puffs by 1 mcg/actuation inhalation mouth into the lungs twice daily. Active traZODone (DESYREL) 100 Take one 30 tablet 0 mg tablet tablet by 1 mouth at bedtime as needed for sleep Active albuterol sulfate (PROAIR Inhale 2 0 HFA) 90 mcg/actuation HFA puffs by aerosol inhaler mouth into the lungs every 6 hours as needed for Wheezing or Shortness of Breath. Shake well before use. Active pregabalin (LYRICA) 300 Take 300 mg 0 mg capsule by mouth twice daily. Active atorvastatin (LIPITOR) 40 Take 40 mg by 0 mg tablet mouth daily. Active pantoprazole DR Take 40 mg by 0 (PROTONIX) 40 mg tablet mouth daily. Active benztropine (COGENTIN) 1 Take 1 mg by 0 mg tablet mouth at bedtime daily. Active prazosin (MINIPRESS) 1 mg Take one 30 capsule 0 capsuleIndications: post capsule by 1 traumatic stress disorder mouth at bedtime daily. Indications: posttraumatic stress syndrome Active propranoloL (INDERAL) 10 Take one 60 tablet 0 0 mg tabletIndications: tablet by 1 essential tremor mouth twice daily. Indications: essential tremor Active ipratropium/albuterol Inhale one 4 g 0 09/12 (COMBIVENT RESPIMAT) puff by mouth 1 20-100 mcg/actuation into the inhaler lungs every 6 hours. Active methocarbamoL (ROBAXIN) Take one 60 tablet 0 750 mg tablet tablet by 1 mouth twice daily. Active fenofibrate 0 nanocrystallized (TRICOR) 1 145 mg tablet Active SENNA LAX 8.6 mg tablet 0 1 Active primidone (MYSOLINE) 50 Take two 90 tablet 5 mg tablet tablets by 1 mouth three times daily. 01/08/2021 Active nortriptyline (PAMELOR) Take one 30 capsule 3 25 mg capsule capsule by 1 mouth at bedtime daily for 30 days. 12/30/2020 Discontinued (Patient's Tavera ce) methylPREDNIsolone 0 (MEDROL DOSEPAK) 4 mg 1 tablet Status Hospital, Clinic, or Ordered Dose Route Frequency Start End Date Other Facility Date Administered Medication Ended iopamidol IT 200 2.5 mL EP ONCE 12/31/19 (ISOVUE-M 200) injection 21 1 2.5 mL Active Problems Problem Noted Date Meralgia paresthetica 10/25/2020 Overview: Formatting of this note might be differ ent from the original. RLE Size is intermittent but can be quite l arge, slightly larger than expected of lateral femoral cutaneous nerve but this is likely contributing with history of jeans/belt and frequent numb ness in this area. Typically no true weakness but sometimes has pain fr om hip down that makes his leg feel weaker. L ast Assessment & Plan: Formatting of this note might be differ ent from the original. Trial of looser fitting clothing EMG/NCS Cervical radiculopathy at C6 10/25/2020 Overview: Formatting of this note might be differ ent from the original. S/P ACDF November 2019 CT Myelogram continues to have moderate stenosis Followed by neurosurgery and pain anest hesia - plan for injections and possible spinal stimulator Symptoms inconsistent - likely radicula r but unclear L ast Assessment & Plan: Formatting of this note might be differ ent from the original. Routine EMG/NCS to eval Borderline personality disorder in adult 07/18/2020 Severe episode of recurrent major depressive disorder , with psychotic 07/14/2020 features PTSD (post-traumatic stress disorder) 07/14/2020 Numbness and tingling of left lower extremity 2020 Overview: Formatting of this note might be differ ent from the original. Mild vibration sense loss in LLE distal to ankles May be related to known hx of DDD/radic ulopathy Concurrent mild cognitive deficits L ast Assessment & Plan: Formatting of this note might be differ ent from the original. EMG/NCS Cognitive complaints 06/06/2020 Overview: Formatting of this note might be differ ent from the original. Forgets some acquaintances Forgets some tasks, placing objects Not substantially impacting QoL Drives, does not get lost Fully independent ADLs, iADLs Did not graduate high school but did ge t [employer]ED [employer] on 06/06/20: (-1 for delayed recall, -2 for missing story question) Likely multifactorial with thyroid diso rder, poor sleep, polypharmacy with multiple sedating agents for back pain L ast Assessment & Plan: Formatting of this note might be differ ent from the original. Continue to work on reducing polypharma cy Lower dose of lyrica more frequently co uld be beneficial - discuss with subscribing physician Essential tremor 06/04/2020 Overview: Formatting of this note might be differ ent from the original. 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 Start primidone 100mg TID Ramp 150mg TID, 200mg TID, and 250mg TI D based on efficacy (give 1-2 weeks in between doses) Instructed patient to continue using My Chart to communicate symptom management Future: Namenda may be a good off-label option especially given patient's cognitive complaints Resolved Problems Problem Noted Date Resolved Date Dysarthria 09/24/2020 09/28/2020 Suicide ideation 07/14/2020 07/18/2020 Encounters Care Team Description Date Type Specialty Benito Pruitt MD 12/30/2020 Hospital Radiology Encounter Benito Pruitt MD Lumbosacral radiculopathy (Primary Dx) 12/30/2020 Procedure visit Anesthesia Pain 12/30/2020 Travel 12/29/2020 Travel Benito Pruitt MD Pre-Visit Planning 12/29/2020 Telephone Anesthesia Pain Ara Lilly, 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 Lumbosacral radiculopathy (Primary Dx); Spondylosis of cervical region without myelopathy or radiculopathy; Facet arthropathy; Myalgia, other site 12/09/2020 Office Visit Anesthesia Pain 12/09/2020 Travel Karie Wells MD Pain (Patient called and states that [facility] 's did not help his pain) 12/04/2020 Telephone Neurosurgery Karie Wells MD Pain (Pain in back) 11/26/2020 Telephone Neurosurgery Benito Pruitt MD 11/11/2020 Hospital Anesthesia Pain Encounter Benito Pruitt MD 11/11/2020 Hospital Radiology Encounter 11/11/2020 Travel Doyle Alarcon MD Cervical radiculopathy (Primary Dx); Meralgia paresthetica of right side 11/09/2020 Procedure visit Neurology 11/09/2020 Travel Benito Pruitt MD 10/27/2020 Hospital Radiology Encounter Benito Pruitt MD 10/27/2020 Hospital Anesthesia Pain Encounter 10/27/2020 Travel Thania Corley MD Meralgia paresthetica of right side; Cognitive complaints; Essential tremor; Numbness and tingling of left lower extremity; Cervical radiculopathy at C6 10/22/2020 Office Visit Neurology 10/22/2020 Travel Benito Pruitt MD Cervical radiculopathy (Primary Dx); Lumbosacral radiculopathy; Chronic bilateral thoracic back pain; DDD (degenerative disc disease), lumbosacral; DDD (degenerative disc disease), cervical; Myalgia, other site; Myofascial pain; Muscle spasm 10/09/2020 Office Visit Anesthesia Pain 10/09/2020 Travel from Last 3 Months Surgical History Surgery Date Site/Laterality Comments HX BACK SURGERY TONSIL AND ADENOIDECTOMY HAND SURGERY Right right middle finger VASECTOMY 05/15/2002 - 05/14/2003 TUMOR EXCISION 11/12/2018 - bladder 12/12/2018 HERNIA REPAIR childhood HX TONSILLECTOMY NECK SURGERY 11/13/09 0 DENTAL SURGERY teeth removed, has dentures Medical History Medical History Date Comments Hypertension COPD (chronic obstructive pulmonary disease) (HCC) Acid reflux Degenerative cervical disc C5-C6 High cholesterol Anxiety Asthma Nausea Thyroid disorder 2009 Depression 2018 Generalized headaches Degenerative disc disease, cervical Degenerative disc disease, lumbar Degenerative disc disease, thoracic Kidney stones Covid-19 07/2020 Family History Medical History Relation Name Comments Mental Retardation Brother Heart Attack Father at 47 Tremor Maternal Aunt Diabetes Mother Brittaney Dementia Paternal Grandfather Tremor Paternal mild Grandmother Relation Name Status Comments Brother Father Maternal Aunt Mother Brittaney Alive Paternal Grandfather Paternal Grandmother Social History Date Tobacco Use Types Packs/Day Years Used Current Every Day Smoker Cigarettes 0.75 30 Smokeless Tobacco: Never Used Tobacco Cessation: Ready to Quit: No; Co unseling Given: No Comments: 1.5 ppd average (39 py hx) [...] at Date Recorded 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 Last Filed Vital Signs Reading Time Taken [...] 12/30/2020 8:45 AM CDT Body Mass Index Plan of Treatment Care Team Description Date Type Specialty Benito Pruitt MD [address] [place] [address] [phone] 01/14/2021 Hospital Anesthesia Pain Encounter Health Maintenance Due Date Last Done Comments HIV SCREENING 1992 DTAP/TDAP VACCINES (1 - 08/06/1995 Tdap) HEPATITIS C SCREENING 08/06/1995 PHYSICAL (COMPREHENSIVE) 08/06/1995 EXAM INFLUENZA VACCINE 02/12/2021 Goals Goal Patient Associated Recent Progress Patient-Stat Aut hor Goal Type Problems ed? Improve quality of life Hospital Yes Rasheed Choi, RN Note: "Stop feeling the way I do and find the right medications" Procedures Comments Procedure Name Priority Date/Time Associated Diag nosis FLUORO GUIDANCE FOR INJ Routine 12/30/2020 Lumbos acral radiculopathy RAD 9:24 AM CDT IA NJX DX/THER SBST Routine 12/30/2020 Lumbosacra l radiculopathy INTRLMNR LMBR/SAC W/IMG 8:30 AM CDT GDN FLUORO MOBILE IN OR Routine 11/11/2020 Lumbosacra l radiculopathy 1:47 PM CDT IA NJX AA&/STRD TFRML EPI Routine 11/11/2020 Lumb osacral radiculopathy LUMBAR/SACRAL EA ADDL 1:15 PM CDT IA NJX AA&/STRD TFRML EPI Routine 11/11/2020 Lumb osacral radiculopathy LUMBAR/SACRAL 1 LEVEL 1:15 PM CDT EMG PROCEDURE Routine 11/09/2020 Meralgia parest hetica of right side Numbness and tingling of left lower extremity Cervical radiculopathy at C6 FLUORO GUIDANCE FOR SPINE Routine 10/27/2020 INJ RAD 3:32 PM CDT IA NJX DX/THER SBST Routine 10/27/2020 Cervical r adiculopathy INTRLMNR CRV/THRC W/IMG 2:15 PM CDT GDN from Last 3 Months Results * FLUORO GUIDANCE FOR INJ RAD (12/30/2020 9:24 AM CDT) Specimen Narrative Performed At This order has been auto finalized and does not conta in a result. AJAY BAL Performing Organization Address City/State/ZIP Code P ayaan Number [facility] * [facility] LMBR/SAC (12/30/2020 8:30 AM CDT) [...] the risks and benefits of the alternatives. Patidanii nt has decided to proceed with treatment/procedure. [place] Protocol: Relevant documents: relevant documents present and verified Site marked: the operative site was [facility] Patient identity confirmed: Patient hector ntify confirmed verbally with patient. Time out: Immediately prior to procedur e a "time out" was called to verify the correct patient, procedure, equipme nt, software support representative and site/side marked as required Procedures Details: [...] after the procedure. The patient (or responsible democrat) was given post-procedure and discharge inst ructions to follow at home. The patient was discharged in stable condit ion. Benito Pruitt MD, VIVIAN Performing Organization Address City/State/ZIP Code P ayaan Number OTHER OUTSIDE LAB * FLUORO MOBILE IN OR (11/11/2020 1:47 PM CDT) Specimen Narrative Performed At This order has been auto finalized and does not conta in a result. AJAY BAL Performing Organization Address City/State/ZIP Code P ayaan Number [facility] * Selective Nerve Rootblock/Transforaminal Lumbar/Sacral (11/11/2020 1:15 PM CDT) Narrative Performed At Benito Pruitt MD 11/11/2020 3:10 PM OTHER OUT SIDE LAB Selective Nerve Rootblock/Transforamina l Lumbar/Sacral Procedure: transforaminal epidural Laterality: right on 11/11/2020 3:09 PM Location: lumbar - L4-5 and L5-S1 Consent: Consent obtained: written Consent given [...] nt has decided to proceed with treatment/procedure. [place] Protocol: Relevant documents: relevant documents present and verified Site marked: the operative site was [facility] Patient identity confirmed: Patient hector ntify confirmed verbally with patient. Time out: Immediately prior to procedur e a "time out" was called to verify the correct patient, procedure, equipme nt, software support representative and site/side marked as required Procedures Details: Indications: pain Prep: chlorhexidine Patient position: prone Estimated Blood Loss: minimal Specimens: none Number of Joints: 2 Guidance: fluoroscopy Contrast: Procedure confirmed with cont rast under live fluoroscopy. Needle and Epidural Catheter: quincke Needle size: 25 G Injection procedure: Incremental inject ion and Negative aspiration for blood Patient tolerance: Patient tolerated th e procedure well with no immediate complications. Pressure was applied, an d hemostasis was accomplished. Outcome: Pain relieved Comments: LUMBAR/SACRAL TRANSFORAMINAL EPIDURAL S TEROID INJECTION PROCEDURE: 1) right L4-5 and L5-S1 transforaminal epidural steroid injection 2) Fluoroscopic needle guidance REASON FOR PROCEDURE: Lumbar radiculopa thy PHYSICIAN: Benito Pruitt MD MEDICATIONS INJECTED: 0.75 mL of Dexame thasone (7.5 mg) + 0.75 ml lidocaine 1% at each level LOCAL ANESTHETIC INJECTED: 1 mL of 1% l idocaine per site SEDATION MEDICATIONS: None ESTIMATED BLOOD LOSS: None SPECIMENS REMOVED: None COMPLICATIONS: None TECHNIQUE: Time-out was taken to identi fy the correct patient, procedure and side prior to starting the procedur e. Lying in a prone position, the patient was prepped and draped in the u sual sterile fashion using DuraPrep and a fenestrated drape. The area to be injected was determined under fluoroscopic guidance. Local anesthetic was given by raising a skin wheal and going down to the hub of a 27-gauge 1.25-inch needle. The 3.5-inch 25-gauge Quincke needle wa s advanced toward the 6 o clock position of the pedicle at each above-n rosey nerve root level. The needle was advanced to the final position via a lateral fluoroscopic intermittent image. Omnipaque 240 was injected under live fluoroscopy and showed epidural spread and there was no vascul ar runoff. After a negative aspiration, the medication was then inj ected. The procedure was completed without com plications and was tolerated well. The patient was monitored after the pro cedure. The patient (or responsible democrat) was given post-procedure and dis charge instructions to follow at home. The patient was discharged in sta ble condition. Performing Organization Address City/State/ZIP Code P ayaan Number OTHER OUTSIDE LAB * EMG PROCEDURE (11/09/2020) Narrative Performed At This result has an attachment that is n ot available. Performing Organization Address City/State/ZIP Code P ayaan Number IN CLINIC * FLUORO GUIDANCE FOR SPINE INJ RAD (10/27/2020 3:32 PM CDT) Specimen Narrative Performed At This order has been auto finalized and does not conta in a result. [facility] Performing Organization Address City/State/ZIP Code P ayaan Number [facility] * Epidural Steroid Injection Cervical/Thoracic (10/27/2020 2:15 PM CDT) Narrative Performed At Benito Pruitt MD 10/27/2020 5:06 PM OTHER OUT SIDE LAB Epidural Steroid Injection Cervical/Tho racic Procedure: epidural - interlaminar Laterality: n/a on 10/27/2020 5:06 PM Location: cervical [facility] with imaging - C 7-T1 Consent: Consent obtained: written Consent given by: patient Risks discussed: allergic reaction, ble eding, bruising, infection, never damage, no change or worsening in pain, pneumo thorax, reaction to medication, seizure, swelling and weakn ess Alternatives discussed: alternative susan atment, delayed treatment and no treatment Discussed with patient the purpose of t he treatment/procedure, other ways of treating my condition, including no treatment/ procedure and the risks and benefits of the alternatives. Patie nt has decided to proceed with treatment/procedure. [place] Protocol: Relevant documents: relevant documents present and verified Site marked: the operative site was [facility] Patient identity confirmed: Patient hector ntify confirmed verbally with patient. Time out: Immediately prior to procedur e a "time out" was called to verify the correct patient, procedure, equipme nt, software support representative and site/side marked as required Procedures Details: Indications: pain Prep: chlorhexidine Patient position: prone Estimated Blood Loss: minimal Specimens: none Amount Injected: C7-T1: 4mL Number of Joints: 1 Approach: midline Guidance: fluoroscopy Contrast: Procedure confirmed with cont rast under live fluoroscopy. Needle and Epidural Catheter: tuohy Needle size: 18 G Injection procedure: Incremental inject ion and Negative aspiration for blood Patient tolerance: Patient tolerated th e procedure well with no immediate complications. Pressure was applied, an d hemostasis was accomplished. Outcome: Pain unchanged Comments: CERVICAL INTERLAMINAR EPIDURAL STEROID INJECTION PROCEDURE: 1) C7-T1 interlaminar epidural steroid injection 2) Fluoroscopic needle guidance REASON FOR PROCEDURE: Cervical radiculo jax, DDD (cervical) ATTENDING PHYSICIAN: Benito Pruitt MD MEDICATIONS INJECTED: 2 mL of triamcini olone (80 mg) and 2 mL of sterile, preservative-free normal saline LOCAL ANESTHETIC INJECTED: 1 mL of 1% l idocaine SEDATION MEDICATIONS: None ESTIMATED BLOOD LOSS: None SPECIMENS REMOVED: None COMPLICATIONS: None TECHNIQUE: Time-out was taken to identi fy the correct patient, procedure and side prior to starting the procedur e. With the patient lying in a prone position with the neck in a sligh tly flexed position, the area was prepped a nd draped in sterile fashion using DuraPrep and a fenestrated drape. The a mauro was determined under fluoroscopic guidance. A 27-gauge, 1.25 -inch needle was used to anesthetize the need le entry site and subcutaneous tissues. The 18-gauge, 3.5-inch Tuohy needle was advanced through the ligamentum flavum using loss of resistance techniq ue. Once the tip of the needle was thought to be in the desired position, contrast was injected to confirm only epidural spread and no vascular ru noff via A-P and lateral views. The injectate was then injected slowly with intermittent negative aspiration. The procedure was completed without com plications and was tolerated well. The patient was monitored after the pro cedure. The patient (or responsible democrat) was given post-procedure and discharge instructions to follow at [facility]. The patient was discharged in stable condition. 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 needed 07/22/2020 4:47 PM Full Code 07/19/2020 5:47 PM Provider has discussed Code Status No, discussion no t w/Patient or Family? necessary based on Dx 07/18/2020 3:42 PM Full Code 07/14/2020 1:55 PM Provider has discussed Code Status No, discussion no t w/Patient or Family? necessary based on Dx
--- OUTSIDE RECORDS SUMMARY | 2021-01-08 06:29 | XMS REPORT | Encounter Summary ---
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
--- OUTSIDE RECORDS SUMMARY | 2021-01-08 06:29 | XMS REPORT | Encounter Summary ---
Author Author [facility] Organization [facility] Address Unknown Phone Unavailable Care Team Providers Care Help Desk Representative Name Role Phone Molly Barragan PA-C PCP Reason for Referral * Radiology Services (Routine) Referred By Contact Referred To Contact Status Reason Specialty Diagnoses / Procedures Benito Pruitt MD [address] [place] [address] New Request Radiology Diagnoses Lumbosacral radiculopathy P rocedures FLUORO GUIDANCE FOR INJ RAD Electronically signed by Benito Pruitt MD at Reason for Visit * Radiology Services (Routine) Referred By Contact Referred To Contact Status Reason Specialty Diagnoses / Procedures Benito Pruitt MD [address] [place] [address] New Request Radiology Diagnoses Lumbosacral radiculopathy P rocedures FLUORO GUIDANCE FOR INJ RAD Encounter Details Care Team Description Date Type Department Benito Pruitt MD [address] [place] [address] 12/30/2020 Hospital Imaging, Comprehens lynnette Encounter [facility]: [facility] [address] [place] [address] [address], [address] [place] [address] Social History Date Tobacco Use [...] at Date Recorded 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 Shake well before use. atorvastatin (LIPITOR) 40 Take 40 mg by 0 mg tablet mouth daily. benztropine (COGENTIN) 1 Take 1 mg by 0 mg tablet mouth at bedtime daily. 07/18/2020 budesonide-formoterol Inhale two 10.2 g 0 (SYMBICORT HFA) 160-4.5 puffs by mcg/actuation inhalation mouth into the lungs twice daily. celecoxib (CELEBREX) 200 Take 200 mg 0 mg capsule by mouth daily. 09/16/2020 fenofibrate 0 nanocrystallized (TRICOR) 145 mg tablet 09/30/2019 hydrOXYzine (ATARAX) 50 Take 50 mg by 0 mg tablet mouth every 6 hours as needed. 09/28/2020 ipratropium/albuterol Inhale one 4 g 0 (COMBIVENT RESPIMAT) puff by mouth 20-100 mcg/actuation into the inhaler lungs every 6 hours. 11/22/2019 levothyroxine (SYNTHROID) Take 200 mcg 0 200 mcg tablet by mouth daily. Take with 25 mcg tablet levothyroxine (SYNTHROID) Take 25 mcg 0 25 mcg tablet by mouth daily 30 minutes before breakfast. Take with 200 mcg tablet 09/28/2020 methocarbamoL (ROBAXIN) Take one 60 tablet 0 750 mg tablet tablet by mouth twice daily. 12/09/2020 01/08/2021 nortriptyline (PAMELOR) Take one 30 capsule 3 25 mg capsule capsule by mouth at bedtime daily for 30 days. oxyCODONE (ROXICODONE) 10 Take 10 mg by 0 mg tablet mouth every 8 hours as needed for Pain pantoprazole DR Take 40 mg by 0 (PROTONIX) 40 mg tablet mouth daily. 09/28/2020 prazosin (MINIPRESS) 1 mg Take one 30 capsule 0 capsuleIndications: post capsule by traumatic stress disorder mouth at bedtime daily. Indications: posttraumatic stress syndrome pregabalin (LYRICA) 300 Take 300 mg 0 mg capsule by mouth twice daily. 10/22/2020 primidone (MYSOLINE) 50 Take two 90 tablet 5 mg tablet tablets by mouth three times daily. 09/28/2020 propranoloL (INDERAL) 10 Take one 60 tablet 0 mg tabletIndications: tablet by essential tremor mouth twice daily. Indications: essential tremor 10/13/2020 SENNA LAX 8.6 mg tablet 0 09/25/2019 sucralfate (CARAFATE) 1 Take 1 tablet 0 gram tablet by mouth three times daily. 07/18/2020 traZODone (DESYREL) 100 Take one 30 tablet 0 mg tablet tablet by mouth at bedtime as needed for sleep documented as of this encounter Discharge Disposition Code Departure Means Destination Disposition Home Home or Self Care documented in this encounter Plan of Treatment Care Team Description Date Type Specialty Benito Pruitt MD [address] [place] [address] [phone] 01/14/2021 Hospital Anesthesia Pain Encounter documented as [...] Lumbos acral radiculopathy RAD 9:24 AM CDT documented in this encounter Results * FLUORO GUIDANCE FOR INJ RAD (12/30/2020 9:24 AM CDT) Specimen Narrative Performed At This order has been auto finalized and does not conta in a result. AJAY BAL Performing Organization Address City/State/ZIP Code P ayaan Number AJAY BAL documented in this encounter Visit Diagnoses Diagnosis Lumbosacral radiculopathy Thoracic or lumbosacral neuritis or rad iculitis, unspecified documented in this encounter Additional Health Concerns Assessment Noted Time A fall risk assessment has been completed for the pat ient 12/09/2020 9:25 AM CDT PHQ-2 Depression Total Score: 1 10/22/2020 10:11 AM CDT documented as of this encounter
--- OUTSIDE RECORDS SUMMARY | 2021-01-08 06:30 | XMS REPORT | Encounter Summary ---
Author Author [facility] Organization [facility] Address Unknown Phone Unavailable Care Team Providers Care Acid Supervisor Name Role Phone Molly Barragan PA-C PCP Reason for Referral * Pain Authorization (Routine) Referred By Contact Referred To Contact Status Reason Specialty Diagnoses / Procedures Benito Pruitt MD [address] [place] [address] [facility] [place] [address] Authorized Anesthesia Pain Diagnoses Lumbosacral radiculopathy P rocedures [facility] INJECT SNRB/TFESI LUMBAR/SACRAL Electronically signed by Benito Pruitt MD at Reason for Visit * Pain Authorization (Routine) Referred By Contact Referred To Contact Status Reason Specialty Diagnoses / Procedures Benito Pruitt MD [address] [place] [address] 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 documented as of this encounter Last Filed Vital Signs Reading Time Taken Comments Vital Sign 135/105 11/11/2020 1:51 PM CDT Blood Pressure - - Pulse 36.4 C (97.5 F) 11/11/2020 1:51 PM CDT Temperature - - Respiratory Rate 97% 11/11/2020 1:51 PM CDT Oxygen Saturation - - Inhaled Oxygen Concentration - - Weight - - Height - - Body Mass Index documented in this encounter [...] impairment: No documented as of this encounter Discharge Instructions * Instructions* Roxanna Goins RN - 11/11/2020 1:15 PM CDT ..GENERAL POST PROCEDURE INSTRUCTIONS Time: Physician: Procedure Completed Today: o Joint Injection (hip, knee, shoulder) o Cervical Epidural Steroid Injection o Cervical Transforaminal Steroid Injection o Trigger Point Injection o Other o Thoracic Epidural Steroid Injection o Lumbar Epidural Steroid Injection o Lumbar Transforaminal Steroid Injection o Facet Joint Injection Important information following your procedure today: ? You may drive today ? If you had sedation ,you may NOT drive today Rest at home for the next 6 hours. You may then begin to resume your normal activities. DO NOT drive any vehicle, operate any power tools, drink alcohol, make any m ajor decisions, or sign any legal documents for the next 12 hours. 1. Pain relief may not be immediate. It is possible you may even experience an i ncrease in pain during the first 24-48 hours followed by a gradual decrease of y our pain. 2. Though the procedure is generally safe and complications are rare, we do ask that you be aware of any of the following: Any swelling, persistent redness, new bleeding or drainage from the site of the injection. You should not experience a severe headache. You should not run a fever over 101oF. New onset of sharp, severe back and or neck pain. New onset of upper or lower extremity numbness or weakness. New difficulty controlling bowel or bladder function after injection. New shortness of breath. If any of these occur, please call to report this occurrence to a nurse at . If you are calling after 4:00pm, on the weekends or holidays please eligio marysol [phone] and ask to have the pain management resident physician leaf conditioner helper fo r the physician paged or go to your local emergency room. 3. You may experience soreness at the injection site. Ice can be applied at 20 m inute intervals for the first 24 hours. The following day you may alternate ice with heat if you are experiencing muscle tightness, otherwise continue with ice. Ice works best at decreasing pain. Avoid application of direct heat, hot showers or hot tubs today. 4. Avoid strenuous activity today. You many resume your regular activities and e xercise tomorrow. 5. Patients with diabetes may see an elevation in blood sugars for 7-10 days aft er the injection. It is important to pay close attention to you diet, check your blood sugars daily and repost extreme elevations to the physician that treats y our diabetes. 6. Patients taking daily blood thinners can resume their regular dose this eveni ng. 7. It is important that you take all medications ordered by your pain physician. Taking medications as ordered is an important part of you pain care plan. If you cannot continue the medication plan, please notify the physician. Possible side effects to steroids that may occur: Flushing or redness of the face Irritability Fluid retention Change in women's menses Follow up appointment as needed if in the event you are unable to keep an appoin tment please notify the operating room scheduler 24 hours in advance at [phone]. documented in this encounter Medications at Time of Discharge [...] mg tablet tablet by mouth twice daily. oxyCODONE (ROXICODONE) 10 Take 10 mg by [...] mouth at bedtime as needed for sleep 10/16/2020 12/30/2020 methylPREDNIsolone 0 (MEDROL DOSEPAK) 4 mg tablet documented as of this encounter Discharge Disposition Code Departure Means Destination Disposition Home Home or Self Care documented in this encounter Progress Notes * Benito Pruitt MD - 11/11/2020 1:15 PM CDT [facility] INTERVENTIONAL PAIN PROCEDURE HISTORY AND PHYSICAL No chief complaint on file. Pain HISTORY OF PRESENT ILLNESS: LBP with RLE radicular component Medical History: Diagnosis Date Acid reflux Anxiety Asthma COPD (chronic obstructive pulmonary disease) ([facility]) COVID-19 07/2020 Degenerative cervical disc C5-C6 Degenerative disc disease, cervical Degenerative disc disease, lumbar Degenerative disc disease, thoracic Depression 2018 Generalized headaches High cholesterol Hypertension Kidney stones Nausea Thyroid disorder 2009 Surgical History: Procedure Laterality Date VASECTOMY 2003 TUMOR EXCISION 11/2018 bladder DENTAL SURGERY teeth removed, has dentures HAND SURGERY Right right middle finger HERNIA REPAIR childhood HX BACK SURGERY HX TONSILLECTOMY NECK SURGERY 11/13/0906/24/2019 TONSIL AND ADENOIDECTOMY family history includes Dementia in his paternal grandfather; Diabetes in his mo ther; Heart Attack in his father; Mental Retardation in his brother; Tremor in h is maternal aunt and paternal grandmother. Social History Socioeconomic History Marital status: Spouse name: Not on file Number of children: Not on file Years of education: Not on file Highest education level: Not on file Occupational History Not on file Tobacco Use Smoking status: Current Every Day Smoker Packs/day: 0.75 Years: 30.00 Pack years: 22.50 Types: Cigarettes Smokeless tobacco: Never Used Tobacco comment: 1.5 ppd average (39 py hx) Substance and Sexual Activity Alcohol use: Yes Alcohol/week: 0.0 standard drinks Comment: 2-5 drinks on 2 occasions per year Drug use: Not Currently Types: Marijuana, Methamphetamines, Cocaine Comment: Last use ~1999 Sexual activity: Not Currently Partners: Female Other Topics Concern Not on file Social History Narrative Not on file Allergies Allergen Reactions Morphine HIVES There were no vitals filed for this visit. PHYSICAL EXAM: General: The patient is a well-developed, well nourished 45 y.o. male in no acut e distress. HEENT: Head is normocephalic and atraumatic. Cardiac: Based on palpation, pulse appears to be regular rate and rhythm. Pulmonary: The patient has unlabored respirations and bilateral symmetric chest excursion. Abdomen: Soft, nontender, and nondistended. Extremities: No clubbing, cyanosis, or edema. Neurologic: The patient is alert and oriented times 3. Musculoskeletal: L-Spine There is mod low lumbar paraspinal tenderness. IMPRESSION: 1. Lumbosacral radiculopathy PLAN: Lumbar Transforaminal Steroid Injection Right L4-S1 documented in this encounter Procedure Notes * Benito Pruitt MD - 11/11/2020 1:15 PM CDT Associated Order(s): Selective Nerve Rootblock/Transforaminal Lumbar/Sacral Pre-Procedure Diagnose(s): Lumbosacral radiculopathy Post-Procedure Diagnose(s): Lumbosacral radiculopathy Attending Surgeon: Benito Pruitt MD Anesthesia: Local Pre-Procedure Diagnosis: 1. Lumbosacral radiculopathy Post-Procedure Diagnosis: 1. Lumbosacral radiculopathy Selective Nerve Rootblock/Transforaminal Lumbar/Sacral Procedure: transforaminal epidural Laterality: right on [...] Patient has decided to proceed with treatment/procedure. [place] Protocol: Relevant documents: relevant documents present and verified Site marked: the operative site was marked Patient identity confirmed: Patient identify confirmed verbally with patient. Time out: Immediately prior to procedure a "time out" was called to verify the c orrect patient, procedure, equipment, product support engineer and site/side marked as requ ired Procedures Details: Indications: pain Prep: chlorhexidine Patient position: prone Estimated Blood Loss: minimal Specimens: none Number of Joints: 2 Guidance: fluoroscopy Contrast: Procedure confirmed with contrast under live fluoroscopy. Needle and Epidural Catheter: quincke Needle size: 25 G Injection procedure: Incremental injection and Negative aspiration for blood Patient tolerance: Patient tolerated the procedure well with no immediate compli cations. Pressure was applied, and hemostasis was accomplished. Outcome: Pain relieved Comments: LUMBAR/SACRAL TRANSFORAMINAL EPIDURAL STEROID INJECTION PROCEDURE: 1) right L4-5 and L5-S1 transforaminal epidural steroid injection 2) Fluoroscopic needle guidance REASON FOR PROCEDURE: Lumbar radiculopathy PHYSICIAN: Benito Pruitt MD MEDICATIONS INJECTED: 0.75 mL of Dexamethasone (7.5 mg) + 0.75 ml lidocaine 1% a t each level LOCAL ANESTHETIC INJECTED: 1 mL of 1% lidocaine per site SEDATION MEDICATIONS: None ESTIMATED BLOOD LOSS: None SPECIMENS REMOVED: None COMPLICATIONS: None TECHNIQUE: Time-out was taken to identify the correct patient, procedure and robbie e prior to starting the procedure. Lying in a prone position, the patient was pr epped and draped in the usual sterile fashion using DuraPrep and a fenestrated d rape. The area to be injected was determined under fluoroscopic guidance. Local anesthetic was given by raising a skin wheal and going down to the hub of a 27-g auge 1.25-inch needle. The 3.5-inch 25-gauge Quincke needle was advanced toward the 6 oclock positio n of the pedicle at each above-named nerve root level. The needle was advanced t o the final position via a lateral fluoroscopic intermittent image. Omnipaque 24 0 was injected under live fluoroscopy and showed epidural spread and there was n o vascular runoff. After a negative aspiration, the medication was then injected . The procedure was completed without complications and was tolerated well. The pa tient was monitored after the procedure. The patient (or responsible constitution party) was given post-procedure and discharge instructions to follow at home. The patient w as discharged in stable condition. Estimated blood loss: none or minimal Specimens: none Patient tolerated the procedure well with no immediate complications. Pressure w as applied, and hemostasis was accomplished. documented in this encounter Plan of Treatment Care Team Description Date Type Specialty Benito Pruitt MD [address] [facility] [place] [address] [phone] 01/14/2021 Hospital Anesthesia Pain Encounter documented as of this encounter Goals Goal Patient Associated Recent Progress Patient-Stat Aut hor Goal Type Problems ed? Improve quality of life Hospital Yes Rasheed Choi, RN Note: "Stop feeling the way I do and find the right medications" documented as of this encounter Procedures Comments Procedure Name Priority Date/Time Associated Diag nosis [place] NJX AA&/STRD TFRML EPI Routine 11/11/2020 Lumb osacral radiculopathy LUMBAR/SACRAL EA ADDL 1:15 PM CDT [place] NJX AA&/STRD TFRML EPI Routine 11/11/2020 Lumb osacral radiculopathy LUMBAR/SACRAL 1 LEVEL 1:15 PM CDT documented in this encounter Results * Selective Nerve Rootblock/Transforaminal Lumbar/Sacral (11/11/2020 1:15 [...] the risks and benefits of the alternatives. Joanne nt has decided to proceed with treatment/procedure. [place] Protocol: Relevant documents: relevant documents present and verified Site marked: the operative site was [facility] Patient identity confirmed: Patient mechelle ntify confirmed verbally with patient. Time out: Immediately prior to procedur e a "time out" was called to verify the correct patient, procedure, equipme nt, product support engineer and site/side marked as required Procedures Details: [...] the pro cedure. The patient (or responsible constitution party) was given post-procedure and dis charge instructions [...] Dose Rate Site Medication Order MAR Action 11/11/2020 1:46 PM CDT 15 mg dexamethasone PF (DECADRON) injection 15 Given mg 15 mg, SEE ADMIN INSTRUCTIONS, ONCE, 1 dose, On Mon11/11/20 at 1315, Preservative Free Route: Epidural 11/11/2020 1:46 PM CDT 2 mL iohexoL (OMNIPAQUE-300) 300 mg/mL Given injection 2 mL 2 mL, SEE ADMIN INSTRUCTIONS, ONCE, 1 dose, On Mon11/11/20 at 1315, Route: Epidural NOTE: This is a HIGH ALERT Medication. 11/11/2020 1:46 PM CDT 2 mL lidocaine PF 1% (10 mg/mL) injection 2 Given mL 2 mL, Injection, ONCE, 1 dose, On Mon11/11/20 at 1315 documented in this encounter Additional Health Concerns Assessment Noted Time PHQ-2 Depression Total Score: 1 10/22/2020 10:11 AM CDT documented as of this encounter
--- OUTSIDE RECORDS SUMMARY | 2021-01-08 06:30 | XMS REPORT | Encounter Summary ---
Author Author [facility] Organization [facility] Address Unknown Phone Unavailable Care Team Providers Care Intensive Care Medicine Specialist Name Role Phone Molly Barragan PA-C PCP Reason for Visit * Reason Onset Date Comments Pain 11/26/2020 Pain in back Encounter Details Care Team Description Date Type Department Karie Wells MD [address] [place] [address] Pain (Pain in back) 11/26/2020 Telephone Comprehensive Spine Center: [facility] [place] [address] [facility] [address], [address] [place] [address] Social History Date Tobacco Use [...] at Date Recorded 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 Sequeira. This RN recommended that patient give the KALA more time an d to call this RN in 1 week to let this RN know how he is doing or if pain is ch anged or is getting worse. Patient verbalized understanding and denies any furth er questions, concerns or needs at this time. documented in this encounter Plan of Treatment Care Team Description Date Type Specialty Benito Pruitt MD [address] [facility] [place] [address] [phone] 01/14/2021 Hospital Anesthesia Pain Encounter documented as [...]
--- OUTSIDE RECORDS SUMMARY | 2021-01-08 06:30 | XMS REPORT | Encounter Summary ---
Author Author [facility] Organization [facility] Address Unknown Phone Unavailable Care Team Providers Care Healthcare Sales Representative Name Role Phone Molly Barragan PA-C PCP Reason for Visit * Reason Onset Date Comments Pain 12/04/2020 Patient called and states that KALA's did not help his pain Encounter Details Care Team Description Date Type Department Karie Wells MD [address] [place] [address] Pain (Patient called and states that KALA 's did not help his pain) 12/04/2020 Telephone Comprehensive Spine Center: [facility], [facility] [address] [facility] [address], [address] [place] [address] Social History Date Tobacco Use [...] at Date 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 This RN scheduled follow-up appointm ent per Dr. Sequeira's OV note's recommendation (4 weeks s/p KALA and after had CT My elogram) for: 12/08/20 at 1530. Patient verbalized understanding, voiced appreciation of return call and denies any further questions, concerns or needs at this time. documented in this encounter Plan of Treatment Care Team Description Date Type Specialty Benito Pruitt MD [address] [facility] [address] [phone] 01/14/2021 Hospital Anesthesia Pain Encounter documented as [...]
--- OUTSIDE RECORDS SUMMARY | 2021-01-08 06:30 | XMS REPORT | Encounter Summary ---
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
--- OUTSIDE RECORDS SUMMARY | 2021-01-08 06:30 | XMS REPORT | Encounter Summary ---
Author Author [facility] Organization [facility] Address Unknown Phone Unavailable Care Team Providers Care Leather Patcher Name Role Phone Molly Barragan PA-C PCP Reason for Referral * Pain Authorization (Routine) Referred By Contact Referred To Contact Status Reason Specialty Diagnoses / Procedures Ara Lilly APRN-SUPERVISOR SELF SERVICE STORE [address] [facility] [address] New Request Diagnoses Spondylosis of cervical region without myelopathy or radiculopathy Facet arthropathy P rocedures [facility] INJECT PVRT FACET MBB JT CRV/THOR Electronically signed by Ara GARZA at * Pain Authorization (Routine) Referred By Contact Referred To Contact Status Reason Specialty Diagnoses / Procedures Ara Lilly APRN-SUPERVISOR SELF SERVICE STORE [address] [facility] [address] [facility] Pain Proc [address] [facility] [address] [place] [address] Authorized Anesthesia Pain Diagnoses Lumbosacral radiculopathy P rocedures [facility] INJECT INTERLAM LMBR/SAC Electronically signed by Ara GARZA at Reason for Visit * Reason Comments Pain Encounter Details Care Team Description Date Type Department Ara Lilly APRN-SUPERVISOR SELF SERVICE STORE [address] Mario Alberto Nieto MD 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 documented as of this encounter Last Filed Vital Signs Reading Time Taken Comments Vital Sign 122/82 12/09/2020 9:24 AM CDT Blood Pressure 70 12/09/2020 9:24 AM CDT Pulse 36.6 C (97.8 F) 12/09/2020 9:24 AM CDT Temperature - - Respiratory Rate 99% 12/09/2020 9:24 AM CDT Oxygen Saturation - - Inhaled Oxygen Concentration 114.3 kg (252 lb) 12/09/2020 9:24 AM CDT Weight 188 cm (6' 2") 12/09/2020 9:24 AM CDT Height 32.35 12/09/2020 9:24 AM CDT Body Mass Index documented in [...] impairment: No documented as of this encounter Ordered Prescriptions Start Date End Date Prescription Sig Dispensed Refills 12/09/2020 01/08/2021 nortriptyline (PAMELOR) Take one 30 capsule 3 25 mg capsule capsule by mouth at bedtime daily for 30 days. documented in this encounter Progress Notes * Ara Lilly, YOHANNES-SUPERVISOR SELF SERVICE STORE - 12/09/2020 9:30 AM CDT [facility] - Interventional Pain Subjective [...] weeks relief x2) Ineffective Physician-ordered PT Kelvin Inocencio Dukes denies any recent fevers, chills, infection, antibiotics, dat l or bladder incontinence, saddle anesthesia, bleeding issues, or recent anticoa gulant. Past Medical History: Medical History: Diagnosis Date Acid reflux Anxiety Asthma COPD (chronic obstructive pulmonary disease) ([facility]) COVID-19 07/2020 Degenerative cervical disc C5-C6 Degenerative disc disease, cervical Degenerative disc disease, lumbar Degenerative disc disease, thoracic Depression 2019 Generalized headaches High cholesterol Hypertension Kidney stones Nausea Thyroid disorder 2009 Family History: Family History Problem Relation Age of Onset Diabetes Mother Heart Attack Father at 47 Tremor Paternal Grandmother mild Tremor Maternal Aunt Mental Retardation Brother Dementia Paternal Grandfather Social History: [place] in [facility] [phone] (2 hours away) Applying for disability. Social [...] daily ., Disp: 60 tablet, Rfl: 0 methylPREDNIsolone (MEDROL DOSEPAK) 4 mg tablet, , Disp: , Rfl: nortriptyline (PAMELOR) 25 mg capsule, Take one [...] for sleep, Disp: 30 tablet, Rfl: 0 Physical examination: BP 122/82 | Pulse 70 | Temp 36.6 C (97.8 F) | Ht 188 cm (74") | Wt [...] C5-C6, posterior disc osteophyte complex result in [id number] central s joseline stenosis. Susceptibility artifact limits [...] radiculopathy [facility] INJECT INTERLAM LMBR/SAC 2. Spondylosis of cervical region without myelopathy or radiculopathy [facility] SP INE INJECT PVRT FACET MBB JT CRV/THOR 3. Facet arthropathy [facility] INJECT PVRT FACET MBB JT CRV/THOR 4. Myalgia, other site Patient has had an adequate trial of [...] and interventional treatments discussed and questions answered. documented in this encounter Plan of Treatment Care Team Description Date Type Specialty Benito Pruitt MD [address] [place] [address] [phone] 01/14/2021 Hospital Anesthesia Pain Encounter Order Schedule Name Type Priority Associated Diag noses 1 Occurrences starting 12/09/2020 until 12/09/2021 [facility] INJECT Procedures Routine Lumbosacra l radiculopathy INTERLAM LMBR/SAC 2 Occurrences starting 12/09/2020 until 12/09/2021 [facility] INJECT PVRT Procedures Routine Spond ylosis of cervical FACET MBB JT CRV/THOR region without myelopathy or radiculopathy Facet arthropathy documented as of this encounter Goals Goal Patient Associated Recent Progress Patient-Stat Aut hor Goal Type Problems ed? Improve quality of life Hospital Yes Rasheed Choi, RN Note: "Stop feeling the way I do and find the right medications" documented as of this encounter Visit Diagnoses Diagnosis Lumbosacral radiculopathy - Primary Thoracic or lumbosacral neuritis or rad iculitis, unspecified Spondylosis of cervical region without myelopathy or radiculopathy Cervical spondylosis without myelopathy Facet arthropathy Spondylosis of unspecified site without mention of myelopathy Myalgia, other site documented in this encounter Additional Health Concerns Assessment Noted Time A fall risk assessment has been completed for the pat ient 12/09/2020 9:25 AM CDT PHQ-2 Depression Total Score: 1 10/22/2020 10:11 AM CDT documented as of this encounter
--- OUTSIDE RECORDS SUMMARY | 2021-01-08 06:30 | XMS REPORT | Encounter Summary ---
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
--- OUTSIDE RECORDS SUMMARY | 2021-01-08 06:30 | XMS REPORT | Encounter Summary ---
Author Author [facility] Organization [facility] Address Unknown Phone Unavailable Care Team Providers Care Vice President Of Brand Management Name Role Phone Molly Barragan PA-C PCP Reason for Visit * Reason Comments Test/procedure * Consult, Test & Treat (Routine) Referred By Contact Referred To Contact Status Reason Specialty Diagnoses / Procedures Monet Lira MD [address] [place] [address] [facility] [address] [place] [address] Authorized Specialty Services Neurology Diagnoses Required Meralgia paresthetica of right side Numbness and tingling of left lower extremity Cervical radiculopathy at C6 P rocedures EMG PROCEDURE Encounter Details Care Team Description Date Type Department Doyle Alarcon MD [address] [place] [address] [phone] Cervical radiculopathy (Primary Dx); Meralgia paresthetica of right side 11/09/2020 Procedure visit [facility]rology: [facility] [address] [place] [address]. 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 documented as of this encounter Last Filed Vital Signs Reading Time Taken Comments Vital Sign 133/92 11/09/2020 9:35 AM CDT Blood Pressure 69 11/09/2020 9:35 AM CDT Pulse - - Temperature - - Respiratory Rate - - Oxygen Saturation - - Inhaled Oxygen Concentration [...] impairment: No documented as of this encounter Progress Notes * Doyle Alarcon MD - 11/09/2020 9:50 AM CDT [facility] Neurology EMG Report RIGHT upper extremity/lower extremity Reason for Study From referring neurology note: " Meralgia Paresthetica RLE Size is intermittent but can be quite large, slightly larger than expected of la teral femoral cutaneous nerve but this is likely contributing with history of je ans/belt and frequent numbness in this area. Typically no true weakness but pao etimes has pain from hip down that makes his leg feel weaker. Cervical Radiculopathy At C6 S/P ACDF November 2019 CT Myelogram continues to have moderate stenosis Followed by neurosurgery and pain anesthesia - plan for injections and possible spinal stimulator Symptoms inconsistent - likely radicular but unclear Numbness and Tingling of Left Lower Extremity Mild vibration sense loss in LLE distal to ankles May be related to known hx of DDD/radiculopathy Concurrent mild cognitive deficits " Impression: This was an abnormal study. There was electrophysiologic evidence of the followin. Age-indeterminate reinnervation without active reinnervation in a RIGHT C5>>6 pattern. No evidence of significant RIGHT C7/8 radiculopathy. No active denerv ation. 2. No evidence for RIGHT median neuropathy/CTS or ulnar neuropathy. 2. No evidence of RIGHT L1-S1 radiculopathy. 3. Underlying motor and sensory peripheral nerve function was normal. *RIGHT thigh sensory changes were mapped out today in a distribution consistent with RIGHT lateral femoral cutaneous nerve. Sincerely, Doyle Alarcon MD Professor, [facility] Neurology Board-certified in Neurology/Neuromuscular Medicine/PM&R/EMG *Nerve conduction study and needle EMG source data are located in scanned docume nt in [employer]. documented in this encounter Plan of Treatment Care Team Description Date Type Specialty Benito Pruitt MD [address] [place] [address] [phone] 01/14/2021 Hospital Anesthesia Pain Encounter documented as of this encounter Goals Goal Patient Associated Recent Progress Patient-Stat Aut hor Goal Type Problems ed? Improve quality of life Hospital Yes Rasheed Choi RN Note: "Stop feeling the way I do and find the right medications" documented as of this encounter Procedures Comments Procedure Name Priority Date/Time Associated Diag nosis EMG PROCEDURE Routine 11/09/2020 Meralgia parest hetica of right side Numbness and tingling of left lower extremity Cervical radiculopathy at C6 documented in this encounter Visit Diagnoses Diagnosis Cervical radiculopathy - Primary Brachial neuritis or radiculitis nos Meralgia paresthetica of right side Meralgia paresthetica documented in this encounter Orders First Ordered Date Procedures Count Last Ordered Date EMG PROCEDURE 1 10/25/2020 documented in this encounter Additional Health Concerns Assessment Noted Time PHQ-2 Depression Total Score: 1 10/22/2020 10:11 AM CDT documented as of this encounter
--- OUTSIDE RECORDS SUMMARY | 2021-01-08 06:30 | XMS REPORT | Encounter Summary ---
Author Author [facility] Organization 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
--- OUTSIDE RECORDS SUMMARY | 2021-01-08 06:30 | XMS REPORT | Encounter Summary ---
Author Author [facility] Organization [facility] Address Unknown Phone Unavailable Care Team Providers Care Boat Garnisher Name Role Phone Molly Barragan PA-C PCP Reason for Referral * Radiology Services (Routine) Referred By Contact Referred To Contact Status Reason Specialty Diagnoses / Procedures Benito Pruitt MD [address] [place] [address] New Request Radiology Diagnoses Lumbosacral radiculopathy P rocedures FLUORO MOBILE IN OR Electronically signed by Benito Pruitt MD at Reason for Visit * Radiology Services (Routine) Referred By Contact Referred To Contact Status Reason Specialty Diagnoses / Procedures Benito Pruitt MD [address] [place] [address] New Request Radiology Diagnoses Lumbosacral radiculopathy P rocedures FLUORO MOBILE IN OR Encounter Details Care Team Description Date Type Department Benito Pruitt MD [address] [place] [address] [phone] 11/11/2020 Hospital Imaging: [facility] [address] [place] [address] Social History Date Tobacco Use Types Packs/Day [...] at Date Recorded 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 Improve quality of life [facility] Yes Rasheed Choi, RN Note: "Stop feeling the way I do and find the right medications" documented as of this encounter Procedures Comments Procedure Name Priority Date/Time Associated Diag nosis FLUORO MOBILE IN OR Routine 11/11/2020 Lumbosacra l radiculopathy 1:47 PM CDT documented in this encounter Results * FLUORO MOBILE IN OR (11/11/2020 1:47 [...]
[2021-01-08] MEDS ORDERED: LACTATED RINGERS 1,000 ML IV PRN (06:45)
--- NOTE | 2021-01-08 07:07 | Progress Note-Pre Operative ---
Pre-Operative Progress Note H&P Reviewed The H&P was reviewed, patient examined and no changes noted. Date Seen by Provider: Jan 08, 2021 Time Seen by Provider: 06:30 Date H&P Reviewed: Jan 08, 2021 Time H&P Reviewed: 06:30 Pre-Operative Diagnosis: TY Gomez MD Jan 08, 2021 07:07
[2021-01-08] MEDS ORDERED: LIDOCAINE PF 2% 5 ML (XYLOCAINE) VIAL ONE (07:22)
[2021-01-08] MEDS ORDERED: proPOfol 200 MG/20 ML (DIPRIVAN) VIAL IV ONE (07:22)
[2021-01-08] MEDS ORDERED: MIDAZOLAM 2 MG/2 ML (VERSED) VIAL ONE (07:22)
[2021-01-08] MEDS ORDERED: ONDANSETRON 4 MG/2 ML (SDV) Z0FRAN ONE (07:22)
[2021-01-08] MEDS ORDERED: SEVOFLURANE (ULTANE) 15 ML INHAL SOLN ONE (07:42)
[2021-01-08] MEDS ORDERED: APAP 325 MG/10.15 ML LIQ (TYLENOL) UDC PO PRN (07:45)
--- NOTE | 2021-01-08 07:45 | Progress Note-Post Operative ---
Post-Operative Progess Note Surgeon (s)/Strap Cutting Machine Operator (s) Surgeon TY ROBLERO MD Strap Cutting Machine Operator n/a Pre-Operative Diagnosis Bilat [facility]LA[facility] Post-Operative Diagnosis same Post-Op Procedure Note Date of Procedure: Jan 08, 2021 Name of Procedure Performed: BMT Description & Findings Description and Findings: n/a Anesthesia Type lma Estimated Blood Loss minimal Packing none. Specimen(s) collected/removed none TY ROBLERO MD Jan 08, 2021 07:45
[2021-01-08] MEDS ORDERED: ONDANSETRON 4 MG/2 ML (SDV) Z0FRAN IVP PRN (08:00)
[2021-01-08] MEDS ORDERED: CIPR5DRO OP (08:09)
--- NOTE | 2021-01-08 08:47 | Anesthesia-General Post-Op ---
General Patient Condition Mental Status/LOC: Same as Preop Cardiovascular: Satisfactory Nausea/Vomiting: Absent Respiratory: Satisfactory Pain: Controlled Complications: Absent Post Op Complications Complications None Follow Up Care/Instructions Patient Instructions None needed. Anesthesia/Patient Condition Patient Condition Patient is doing well, no complaints, stable vital signs, no apparent adverse anesthesia problems. No complications reported per nursing. TAMIR MAK CRNA Jan 08, 2021 08:47
== END 2021-01-08 09:15 | disposition home or self-care (01) ==
LOC: SDC 06:26
PROVIDERS: ATTEND Otolaryngology Otolaryngology/Facial Plastic Surgery
DX: H65.23 Chronic serous otitis media, bilateral (principal); H69.83 Other specified disorders of Eustachian tube, bilateral; H91.93 Unspecified hearing loss, bilateral; I10 Essential (primary) hypertension; J44.9 Chronic obstructive pulmonary disease, unspecified; G47.33 Obstructive sleep apnea (adult) (pediatric); K21.9 Gastro-esophageal reflux disease without esophagitis; F17.210 Nicotine dependence, cigarettes, uncomplicated; Z79.899 Other long term (current) drug therapy
CPT/HCPCS: 87081